=== PATIENT | female | born 1940 | race Caucasian/White ===

== ENCOUNTER → 2019-10-24 | Outpatient (CLI) | payer MEDICARE, OTHER ==
[~2019-10-24] MED LIST: ASPI81CH43 PO; BACITRACIN TOP OINT 1 UD PKG TOP ONE; CHOL1TAB22 PO; COEN100C30 PO; FURO1TAB31 PO; LEVO50TA7 PO; LISI10TA6 PO; ROSU10TA16 PO; UMEC1AER IN
[2019-10-24 10:45] VITALS: BP 166/76
[2019-10-24 11:05] VITALS: BP 165/69
--- NOTE | 2019-10-24 11:06 | NUR ---
Discharge Instructions See e-MAR for any mediations given with this visit. Patient education given on disease process. Patient verbalized understanding. Previous labs reviewed. Patient discharged in stable condition with after care instructions and follow up appointment. NOTE WOUND CARE DONE BY CHERYL SENIOR BACITRACIN OINTMENT 1 PACK
== END | disposition home or self-care (01) ==
LOC: CHF HDHVI 10:46
PROVIDERS: ATTEND Internal Medicine Cardiovascular Disease
DX: T14.8XXA Other injury of unspecified body region, initial encounter (principal); X58.XXXA Exposure to other specified factors, initial encounter; Y93.89 Activity, other specified; Y92.89 Other specified places as the place of occurrence of the external cause; Y99.8 Other external cause status
CPT/HCPCS: G0463

== ENCOUNTER 2019-11-30 12:27 | Inpatient (IN) | payer MEDICARE, OTHER ==
[~2019-11-30] VITALS: Ht 157.5 cm; Wt 61.3 kg
[2019-11-30] MEDS: POTASSIUM CHL 20MEQ/100ML 100 ML IV SCH ×6 (02:50→22:25)
[~2019-11-30 12:27] MED LIST changes: -BACITRACIN TOP OINT 1 UD PKG TOP ONE
[2019-11-30 13:33] LABS: Basophils # (auto) 0.1 10 ^3/uL (0-0.2); Basophils % (auto) 1.2 % (0.0-2.0); Eosinophils # (auto) 0.2 10 ^3/uL (0-0.8); Eosinophils % (auto) 2.8 % (0.0-7.0); Hematocrit 44.8 % (36.0-46.0); Lymphocytes # (auto) 1.6 10 ^3/uL (0.4-5.4); Lymphocytes % (auto) 27.2 % (10.0-50.0); Mean Corpuscular Hemoglobin 30.3 pg (28.0-32.0); Mean Corpuscular Hgb Conc. 33.5 g/dL (32.0-36.0); Mean Corpuscular Volume 90.4 fL (80.0-100.0); Monocytes # (auto) 0.4 10 ^3/uL (0-1.3); Monocytes % (auto) 6.5 % (0.0-12.0); Neutrophils # (auto) 3.6 10 ^3/uL (1.6-8.6); Neutrophils % (auto) 62.3 % (37.0-80.0); Nucleated Red Blood Cells % 0.1 %; Platelet Count (auto) 250 10^3/uL (140-450); Red Blood Cells 4.95 10^6/uL (4.0-5.20); Red Cell Distribution Width 14.3 % (11.8-14.3); White Blood Cell 5.9 10^3/uL (4.4-10.8)
[2019-11-30 13:45] LABS: Albumin 3.5 g/dL (3.4-5.0); Anion Gap 7 (5-15); Blood Urea Nitrogen 9 mg/dL (7-18); Calcium 9.4 mg/dL (8.5-10.1); Carbon Dioxide 34 mmol/L (21-32); Chloride 103 mmol/L (98-107); Glucose 99 mg/dL (74-106); Sodium 144 mmol/L (136-145)
[2019-11-30] MEDS ORDERED: PANTOPRAZOLE 40 MG TAB PO ONE (13:45)
[2019-11-30] MEDS ORDERED: ASPirin 81 mg TAB PO ONE (13:45)
[2019-11-30 13:51] LABS: Alanine Aminotransferase 20 U/L (13-56); Alkaline Phosphatase 134 U/L (45-117); Aspartate Aminotransferase 24 U/L (15-37); BUN/Creatinine Ratio 10.7; Bilirubin, Total 0.9 mg/dL (0.2-1.0); GFR African American 84 mL/min; GFR Non-African American 69 mL/min; Total Protein 7.4 g/dL (6.4-8.2)
[2019-11-30 13:57] LABS: Potassium 2.3 mmol/L (3.5-5.1)
[2019-11-30] MEDS ORDERED: POTASSIUM CHL 20 Meq TABLET PO ONE ×2 (17:15→19:30)
--- NOTE | 2019-11-30 19:30 | NUR ---
Admitted this 79 year old female client due to low K level = 2.3 today. Pt. arrived alert, awake, oriented x 4 with [place] (hard of hearing) from E.R. to Room # 221 A by soledad/savannah. Pt. diagnosis is Hypokalemia. Pt. placed to bed comfortably. Initial assessment done. Pt. on telemetry with Tele box # 27 Sinus Rhythm @ 70's @ the monitor. Pt. on 2L/NC continuous attached to the 02 cylinder. Pt. lungs sound diminished bilaterally. Breathing symmetrical with mild sob. Pt. on bedrest with BRP and minimal assist. Pt. provided orientation to the room, Central wing unit and hospital policies like "no smoking" in the room, v/s to be taken as routine, use of tele box and telemetry patches on her chest and pt. safety with call-light @ the bedside. Pt. given orientation also of the call-light, TV, bed controls, telephone and other safety precaution. Keep pt. safe and manager machine bed.
--- NOTE | 2019-11-30 20:00 | NUR ---
Complete assessment done @ the bedside. Gathered data from pt. with the help of the Resource PARRISH Francois. Pt. provided assistance with ADL's and needs. Keep pt. safe, warm and comfortable in bed. IV of Potassium Chloride 20 meq. Replacement set up by PARRISH Cohen with the IV Pump @ the bedside to run continuously till pt. will complete the four (4) bags tonight which started @ the ER. Pt. Potassium Chloride 20 meq. IV is attached to the RAC G # 22. Provide pt. psychological support and stayed with the pt. Given pt. explanation to the IV treatment given due to low K level today = 2.3 , see or refer to the lab. results today.
[2019-11-30] MEDS: CLOPIDOGREL BISULFATE 75 MG TAB PO SCH (21:19)
--- NOTE | 2019-11-30 21:19 | NUR ---
Due meds. given to the pt. with health teaching provided about its use and mechanism of action. Pt. verbalized understanding. Pt. has swallowing difficulty and crushed meds. and given with apple sauce and water slowly with HOB Up @ 85-90 degrees angle. Then pt. returned to sleep with the HOB @ 30 degrees angle. Covered pt. with blanket and kept pt. warm. Call-light within reach. Maintained a safe and quiet environment. Potassium Chloride IV rider running continuously. This is the seconds bag of the K Christopher 20 meq./100 ml. bag.
[2019-11-30] MEDS: LISINOPRIL 10 MG TAB PO SCH (21:20)
[2019-11-30 21:47] VITALS: BP 127/74
--- NOTE | 2019-11-30 22:25 | NUR ---
Third 3rd IV Potassium Chloride or IV K Christopher bag given @ this time. This # 3 bag of IV K Christopher running continuously till consumed or finished.
--- NOTE | 2019-12-01 00:10 | NUR ---
Pt. calm and sleeping. SR @ the 70 's @ the Tele monitor # 27. No s.s of facial grimacing. No s/s of anxiety or agitation. Pt. sleeping well.
[2019-12-01] MEDS: POTASSIUM CHL 20MEQ/100ML 100 ML IV SCH (02:50)
--- NOTE | 2019-12-01 02:50 | NUR ---
The fourth (4th) IV Potassium Chloride 20 meq. Christopher given and this is the complete and final dose. Pt. still sleeping well.
--- NOTE | 2019-12-01 04:00 | NUR ---
No s/s of acute change. Pt. sleeping well. No s/s of pain, anxiety or discomfort. SR @ the monitor. Keeping environment free of unnecessary noise. Call-light @ the bedside.
[2019-12-01 05:00] VITALS: BP 153/67
--- NOTE | 2019-12-01 06:30 | NUR ---
Pt. sleeping, easily arousable by name. SR @ the monitor @ Tele Box # 27. No verbalization of pain @ this time. Am care given.
[2019-12-01] MEDS: LEVOTHYROXINE SODIUM 50 MCG TAB PO SCH (06:36)
--- NOTE | 2019-12-01 06:36 | NUR ---
Due med. given Synthroid 50 mcg. given po. @ this time. Pt. made aware of the use/benefits of med. given. Pt. verbalized understanding. Pt. awaiting breakfast. SR @ the monitor.
--- NOTE | 2019-12-01 07:00 | NUR ---
Opening Shift Note Received report on the patient. Awake lying in bed. Discussed the plan of care with the patient. Patient shows no signs of distress at this time. Bed in lowest position, side rails up x2, and the call light is within reach. Will continue to monitor.
--- NOTE | 2019-12-01 07:15 | NUR ---
Gave report to the next Day Shift PARRISH Busby. Pt. in bed resting awaiting breakfast.
[2019-12-01 08:00] VITALS: BP 127/74
[2019-12-01 09:00] VITALS: BP 134/54
[2019-12-01 09:15] LABS: Basophils # (auto) 0.1 10 ^3/uL (0-0.2); Basophils % (auto) 1.1 % (0.0-2.0); Eosinophils # (auto) 0.1 10 ^3/uL (0-0.8); Eosinophils % (auto) 2.9 % (0.0-7.0); Hematocrit 36.9 % (36.0-46.0); Hemoglobin 12.4 g/dL (12.2-16.2); Lymphocytes # (auto) 1.7 10 ^3/uL (0.4-5.4); Lymphocytes % (auto) 35.8 % (10.0-50.0); Mean Corpuscular Hemoglobin 30.8 pg (28.0-32.0); Mean Corpuscular Hgb Conc. 33.7 g/dL (32.0-36.0); Mean Corpuscular Volume 91.4 fL (80.0-100.0); Monocytes # (auto) 0.4 10 ^3/uL (0-1.3); Monocytes % (auto) 7.7 % (0.0-12.0); Neutrophils # (auto) 2.6 10 ^3/uL (1.6-8.6); Neutrophils % (auto) 52.5 % (37.0-80.0); Nucleated Red Blood Cells % 0.1 %; Platelet Count (auto) 190 10^3/uL (140-450); Red Blood Cells 4.04 10^6/uL (4.0-5.20); Red Cell Distribution Width 14.2 % (11.8-14.3); White Blood Cell 4.9 10^3/uL (4.4-10.8)
[2019-12-01 09:32] LABS: Albumin 2.5 g/dL (3.4-5.0); Calcium 8.6 mg/dL (8.5-10.1); Potassium 3.6 mmol/L (3.5-5.1)
[2019-12-01 09:35] LABS: BUN/Creatinine Ratio 9.2; Bilirubin, Total 0.7 mg/dL (0.2-1.0); Total Protein 5.7 g/dL (6.4-8.2)
[2019-12-01] MEDS: CLOPIDOGREL BISULFATE 75 MG TAB PO SCH (10:38)
[2019-12-01] MEDS: LISINOPRIL 10 MG TAB PO SCH ×2 (10:39→21:34)
[2019-12-01 19:43] LABS: Urine Bacteria MOD /hpf (None Seen); Urine Blood Negative /uL (Negative); Urine Specific Gravity 1.009 (1.001-1.035); Urine WBC 4 /hpf (0 - 5)
--- NOTE | 2019-12-01 20:04 | NUR ---
Opening Shift Note Assumed care of patient, sleeping in bed at this time. No S/S of distress/SOB or pain. Instructed on POC and to call for assist PRN, will continue to monitor for changes Q1hr and PRN.
[2019-12-01 21:42] VITALS: BP 146/64
--- NOTE | 2019-12-01 23:22 | NUR ---
OLIVER Recieved Received report from PARRISH Samuel and assumed care of patient. Patient is currently sleeping, awakens to voice. No signs or symptoms of distress noted, patient currently denies pain. Explained plan of care to patient and to call for assistance as needed, patient verbalized understanding. Will continue to monitor.
[2019-12-02 04:48] VITALS: BP 140/68
[2019-12-02] MEDS: LEVOTHYROXINE SODIUM 50 MCG TAB PO SCH (06:41)
[2019-12-02 07:45] VITALS: BP 127/74
[2019-12-02 09:00] VITALS: BP 127/66
[2019-12-02 09:15] LABS: Basophils # (auto) 0.1 10 ^3/uL (0-0.2); Basophils % (auto) 0.8 % (0.0-2.0); Eosinophils # (auto) 0.2 10 ^3/uL (0-0.8); Eosinophils % (auto) 3.5 % (0.0-7.0); Hematocrit 40.4 % (36.0-46.0); Hemoglobin 13.1 g/dL (12.2-16.2); Lymphocytes # (auto) 2.1 10 ^3/uL (0.4-5.4); Lymphocytes % (auto) 34.3 % (10.0-50.0); Mean Corpuscular Hemoglobin 29.7 pg (28.0-32.0); Mean Corpuscular Hgb Conc. 32.5 g/dL (32.0-36.0); Mean Corpuscular Volume 91.4 fL (80.0-100.0); Monocytes # (auto) 0.4 10 ^3/uL (0-1.3); Monocytes % (auto) 6.2 % (0.0-12.0); Neutrophils # (auto) 3.4 10 ^3/uL (1.6-8.6); Neutrophils % (auto) 55.2 % (37.0-80.0); Nucleated Red Blood Cells % 0.2 %; Platelet Count (auto) 233 10^3/uL (140-450); Red Blood Cells 4.42 10^6/uL (4.0-5.20); Red Cell Distribution Width 14.4 % (11.8-14.3); White Blood Cell 6.1 10^3/uL (4.4-10.8)
[2019-12-02 09:35] LABS: Albumin 2.8 g/dL (3.4-5.0); BUN/Creatinine Ratio 11.7; Calcium 9.2 mg/dL (8.5-10.1); Potassium 3.3 mmol/L (3.5-5.1)
[2019-12-02 09:38] LABS: Bilirubin, Total 0.8 mg/dL (0.2-1.0); Total Protein 6.4 g/dL (6.4-8.2)
[2019-12-02] MEDS: CLOPIDOGREL BISULFATE 75 MG TAB PO SCH (10:26)
[2019-12-02] MEDS: LISINOPRIL 10 MG TAB PO SCH (10:27)
[2019-12-02 13:00] VITALS: BP 127/70
--- NOTE | 2019-12-02 15:13 | NUR ---
[facility] Faxed D/C summary, face sheet, H&P, and order to [facility]
[2019-12-02 15:15] VITALS: BP 127/70
--- NOTE | 2019-12-04 10:26 | NUR ---
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 health packet. Per Nadia they have accepted patient for service on today 12/04/2019. Addendum: 12/04/19 at 1029 by Freda Kong SS Amended: Links added.
== END 2019-12-02 16:36 | disposition home health service (06) | DRG 641 ==
LOC: EDBD 12:27 → ER 12:27 → TELE 12:28 → TELE-CENTR 19:14
PROVIDERS: ADMIT Internal Medicine Cardiovascular Disease; ATTEND Internal Medicine Cardiovascular Disease
DX: E87.6 Hypokalemia (principal); I47.1 Supraventricular tachycardia; C44.90 Unspecified malignant neoplasm of skin, unspecified; E03.9 Hypothyroidism, unspecified; E78.5 Hyperlipidemia, unspecified; E86.1 Hypovolemia; R07.89 Other chest pain; I25.10 Atherosclerotic heart disease of native coronary artery without angina pectoris; J44.9 Chronic obstructive pulmonary disease, unspecified; I10 Essential (primary) hypertension; Z79.82 Long term (current) use of aspirin; Z79.899 Other long term (current) drug therapy; Z80.1 Family history of malignant neoplasm of trachea, bronchus and lung; Z82.49 Family history of ischemic heart disease and other diseases of the circulatory system; I25.2 Old myocardial infarction; Z90.49 Acquired absence of other specified parts of digestive tract; Z85.828 Personal history of other malignant neoplasm of skin; Z90.710 Acquired absence of both cervix and uterus; Z98.61 Coronary angioplasty status; Z88.0 Allergy status to penicillin
CPT/HCPCS: 36415; 71046; 80053; 81001; 84484; 85025; 87081; 93005; 96365; 96366; G0378; J3480

== ENCOUNTER → 2020-01-01 | Outpatient (CLI) | payer MEDICARE, OTHER | END | disposition home or self-care (01) | LOC: Rad HDHVI 08:49 | PROVIDERS: ATTEND Internal Medicine Cardiovascular Disease | DX: I07.1 Rheumatic tricuspid insufficiency (principal); I21.4 Non-ST elevation (NSTEMI) myocardial infarction | CPT/HCPCS: 93306 ==

== ENCOUNTER → 2020-01-03 | Outpatient (CLI) | payer MEDICARE, OTHER | END | disposition home or self-care (01) | LOC: Rad HDHVI 11:06 | PROVIDERS: ATTEND Internal Medicine Cardiovascular Disease | DX: I21.4 Non-ST elevation (NSTEMI) myocardial infarction (principal); R42 Dizziness and giddiness | CPT/HCPCS: 93880 ==

== ENCOUNTER → 2020-01-26 | Outpatient (CLI) | payer MEDICARE, OTHER ==
[~2020-01-26] VITALS: Ht 157.5 cm; Wt 55.3 kg
[~2020-01-26] MED LIST changes: +ADENOSINE 46 MG in GIVE UN-DILUTED 0 ML IV ONE; +ADENOSINE 90 MG/30 ML INJ IV ONE
== END | disposition home or self-care (01) ==
LOC: Rad HDHVI 07:59
PROVIDERS: ATTEND Internal Medicine Cardiovascular Disease
DX: I25.10 Atherosclerotic heart disease of native coronary artery without angina pectoris (principal); I10 Essential (primary) hypertension; E78.00 Pure hypercholesterolemia, unspecified; F17.210 Nicotine dependence, cigarettes, uncomplicated; Z82.49 Family history of ischemic heart disease and other diseases of the circulatory system
CPT/HCPCS: 78452; 93005; 96374; 96375; A9500; J0153

== ENCOUNTER → 2020-03-21 | Outpatient (CLI) | payer MEDICARE, OTHER ==
[~2020-03-21] MED LIST changes: -ADENOSINE 46 MG in GIVE UN-DILUTED 0 ML IV ONE; -ADENOSINE 90 MG/30 ML INJ IV ONE
[2020-03-21 13:05] VITALS: BP 130/69
--- NOTE | 2020-03-21 13:05 | NUR ---
PT. BROUGHT TO CHF CLINIC FROM WAITING ROOM WITH CAREGIVER WITH C/O CHEST PAIN THIS MORNING AND "FAST HEARTBEAT". PT. WITH NO C.P. AT THIS TIME BUT APPEARS VERY ANXIOUS AND NERVOUS. AOX4, PWD. ORDERS RECEIVED AND CARRIED OUT.
--- NOTE | 2020-03-21 13:20 | NUR ---
EKG DONE SHOWING RSR WITH NO ECTOPY AT [address] ELEVATION. OLD ANTEROSEPTAL INFARCT NOTED. PT. APPEARS LESS ANXIOUS WITH REASURRANCE OF EKG RESULTS. PT. HAS 2 DEATHS IN THE FAMILY RECENTLY AND STATES SHE IS FEELING UNDER A GREAT DEAL OF STRESS. NO FURTHER ORDERS RECEIVED. B/P STABLE AT 117/60, 74, 16, RA SATS 97%, PT. IS MUCH MORE CALM AT THIS TIME.
[2020-03-21 13:45] VITALS: BP 118/72
--- NOTE | 2020-03-21 13:45 | NUR ---
Discharge Instructions See e-MAR for any mediations given with this visit. Patient education given on disease process. Patient verbalized understanding. Previous labs reviewed. Patient discharged in stable condition with after care instructions and follow up appointment. PT. INSTRUCTED TO USE ONE HALF TAB OF HER ATIVAN THAT SHE WAS PRESCRIBED WHEN SHE LOST HER SISTER RECENTLY, WITH CAREGIVER AKNOWLEDGING DIRECTIONS. PT. TO RTC PRN AND FOLLOW UP WITH HER NEXT APPT. DC'D IN NO DISTRESS TO POV.
== END | disposition home or self-care (01) ==
LOC: CHF HDHVI 13:07
PROVIDERS: ATTEND Internal Medicine Cardiovascular Disease
DX: I25.10 Atherosclerotic heart disease of native coronary artery without angina pectoris (principal); R07.9 Chest pain, unspecified; F41.9 Anxiety disorder, unspecified; I73.9 Peripheral vascular disease, unspecified
CPT/HCPCS: 93005; G0463

== ENCOUNTER → 2020-10-09 | Outpatient (CLI) | payer MEDICARE, OTHER ==
[~2020-10-09] MED LIST changes: +LISI-648 PO; -LISI10TA6 PO
[2020-10-09 15:37] LABS: Basophils # (auto) 0.1 10 ^3/uL (0-0.2); Basophils % (auto) 0.9 % (0.0-2.0); Eosinophils # (auto) 0.1 10 ^3/uL (0-0.8); Eosinophils % (auto) 2.3 % (0.0-7.0); Hematocrit 38.9 % (36.0-46.0); Hemoglobin 13.5 g/dL (12.2-16.2); Lymphocytes # (auto) 2.4 10 ^3/uL (0.4-5.4); Lymphocytes % (auto) 37.9 % (10.0-50.0); Mean Corpuscular Hemoglobin 31.9 pg (28.0-32.0); Mean Corpuscular Hgb Conc. 34.7 g/dL (32.0-36.0); Mean Corpuscular Volume 91.8 fL (80.0-100.0); Monocytes # (auto) 0.4 10 ^3/uL (0-1.3); Monocytes % (auto) 5.9 % (0.0-12.0); Neutrophils # (auto) 3.4 10 ^3/uL (1.6-8.6); Nucleated Red Blood Cells % 0.1 %; Platelet Count (auto) 289 10^3/uL (140-450); Red Blood Cells 4.24 10^6/uL (4.0-5.20); Red Cell Distribution Width 14.3 % (11.8-14.3); White Blood Cell 6.4 10^3/uL (4.4-10.8)
[2020-10-09 15:39] LABS: Urine Blood Negative /uL (Negative); Urine Specific Gravity 1.007 (1.001-1.035)
[2020-10-09 15:55] LABS: Free T4 (Free Thyroxine) 0.94 ng/dL (0.89-1.76)
[2020-10-09 15:56] LABS: Albumin 3.6 g/dL (3.4-5.0); Calcium 9.4 mg/dL (8.5-10.1)
[2020-10-09 16:00] LABS: BUN/Creatinine Ratio 8.9; Bilirubin, Direct 0.3 mg/dL (0-0.2); Bilirubin, Total 1.2 mg/dL (0.2-1.0); Total Protein 7.4 g/dL (6.4-8.2)
[2020-10-09 16:34] LABS: Potassium 2.6 mmol/L (3.5-5.1)
== END | disposition home or self-care (01) ==
LOC: LAB 13:14
PROVIDERS: ATTEND Internal Medicine Cardiovascular Disease
DX: D51.3 Other dietary vitamin B12 deficiency anemia (principal); I10 Essential (primary) hypertension; E11.9 Type 2 diabetes mellitus without complications; E55.9 Vitamin D deficiency, unspecified; D64.9 Anemia, unspecified; R00.2 Palpitations; R53.1 Weakness; R30.0 Dysuria
CPT/HCPCS: 36415; 80048; 80061; 80076; 81003; 82306; 82607; 83036; 84439; 84443; 85025

== ENCOUNTER → 2020-10-16 | Outpatient (CLI) | payer MEDICARE, OTHER ==
[2020-10-16 14:02] VITALS: BP 136/59
[2020-10-16] MEDS: CYANOCOBALAMIN (B-12) 1000 MCG/1 ML VIAL IM ONE (14:14)
[2020-10-16 14:22] VITALS: BP 132/58
[2020-10-16] MEDS: CYANOCOBALAMIN (B-12) 1000 MCG/1 ML VIAL ONE (14:38)
[2020-10-16 15:57] LABS: Magnesium 2.3 mg/dL (1.6-2.6)
[2020-10-16 16:02] LABS: Potassium 2.7 mmol/L (3.5-5.1)
== END | disposition home or self-care (01) ==
LOC: CHF HDHVI 14:23
PROVIDERS: ATTEND Internal Medicine Cardiovascular Disease
DX: D51.9 Vitamin B12 deficiency anemia, unspecified (principal); E87.6 Hypokalemia; R53.83 Other fatigue; I11.0 Hypertensive heart disease with heart failure; I50.33 Acute on chronic diastolic (congestive) heart failure; R06.02 Shortness of breath; E11.9 Type 2 diabetes mellitus without complications
CPT/HCPCS: 36415; 83735; 84132; 93306; 96372; G0463; J3420

== ENCOUNTER → 2020-10-28 | Outpatient (CLI) | payer MEDICARE, OTHER ==
[2020-10-28 11:56] LABS: Potassium 3.5 mmol/L (3.5-5.1)
[2020-10-28 12:10] LABS: BUN/Creatinine Ratio 15.2; Calcium 9.7 mg/dL (8.5-10.1); Magnesium 2.4 mg/dL (1.6-2.6)
== END | disposition home or self-care (01) ==
LOC: LAB 09:40
PROVIDERS: ATTEND Internal Medicine Cardiovascular Disease
DX: I49.9 Cardiac arrhythmia, unspecified (principal); I10 Essential (primary) hypertension
CPT/HCPCS: 36415; 80048; 83735

== ENCOUNTER 2021-06-10 09:31 | Emergency (ER) | payer MEDICARE, OTHER ==
[~2021-06-10] VITALS: Ht 154.9 cm; Wt 54.4 kg
[~2021-06-10 09:31] MED LIST changes: -LISI-648 PO; +LISI-716 PO
[2021-06-10] MEDS ORDERED: ONDANSETRON HCL 4 MG/2 ML VIAL IV ONE (11:30)
[2021-06-10] MEDS ORDERED: MORPHINE SULFATE INJECTION 2 MG/ML SYRG IV ONE (11:30)
[2021-06-10 12:04] LABS: Basophils # (auto) 0.1 10 ^3/uL (0-0.2); Basophils % (auto) 0.6 % (0.0-2.0); Eosinophils # (auto) 0.2 10 ^3/uL (0-0.8); Eosinophils % (auto) 1.9 % (0.0-7.0); Hematocrit 39.5 % (36.0-46.0); Hemoglobin 13.3 g/dL (12.2-16.2); Lymphocytes # (auto) 1.5 10 ^3/uL (0.4-5.4); Lymphocytes % (auto) 15.6 % (10.0-50.0); Mean Corpuscular Hemoglobin 29.9 pg (28.0-32.0); Mean Corpuscular Hgb Conc. 33.7 g/dL (32.0-36.0); Mean Corpuscular Volume 88.9 fL (80.0-100.0); Monocytes # (auto) 0.5 10 ^3/uL (0-1.3); Monocytes % (auto) 5.4 % (0.0-12.0); Neutrophils # (auto) 7.6 10 ^3/uL (1.6-8.6); Neutrophils % (auto) 76.5 % (37.0-80.0); Red Blood Cells 4.45 10^6/uL (4.0-5.20); White Blood Cell 9.9 10^3/uL (4.4-10.8)
[2021-06-10 12:09] LABS: Albumin 3.6 g/dL (3.4-5.0); Anion Gap 6 (5-15); Blood Urea Nitrogen 8 mg/dL (7-18); Calcium 9.5 mg/dL (8.5-10.1); Carbon Dioxide 30 mmol/L (21-32); Chloride 110 mmol/L (98-107); Glucose 96 mg/dL (74-106); Sodium 146 mmol/L (136-145)
[2021-06-10 12:15] LABS: Alanine Aminotransferase 20 U/L (13-56); Alkaline Phosphatase 95 U/L (45-117); Aspartate Aminotransferase 23 U/L (15-37); BUN/Creatinine Ratio 9.9; GFR African American 87 mL/min; GFR Non-African American 72 mL/min; Total Protein 7.4 g/dL (6.4-8.2)
[2021-06-10 12:25] LABS: Potassium 2.7 mmol/L (3.5-5.1)
[2021-06-10] MEDS ORDERED: ALUM & MAG HYDROX-SIMETH LIQ(MAALOX) 30 ML PO ONE (12:30)
[2021-06-10] MEDS ORDERED: POTASSIUM EFFERVESENT TAB 25 MEQ PO ONE (12:30)
[2021-06-10] MEDS ORDERED: POTASSIUM CHL 20MEQ/100ML 100 ML IV ONE (12:30)
[2021-06-10 15:11] VITALS: BP 124/68
== END 2021-06-10 15:21 | disposition home or self-care (01) ==
LOC: ER 09:31
DX: M48.02 Spinal stenosis, cervical region (principal); E87.6 Hypokalemia; J44.9 Chronic obstructive pulmonary disease, unspecified; E78.5 Hyperlipidemia, unspecified; Z90.49 Acquired absence of other specified parts of digestive tract; Z90.89 Acquired absence of other organs; Z90.710 Acquired absence of both cervix and uterus; Z88.0 Allergy status to penicillin; Z88.8 Allergy status to other drugs, medicaments and biological substances; Z79.899 Other long term (current) drug therapy
CPT/HCPCS: 36415; 72125; 80053; 83880; 84484; 85025; 93005; 96365; 96366; 96375; 99285; J2270; J2405; J3480

== ENCOUNTER 2022-01-25 07:21 | Emergency (ER) | payer MEDICARE, OTHER ==
[~2022-01-25] VITALS: Ht 160 cm; Wt 54.4 kg
[2022-01-25] MEDS ORDERED: ACETAMINOPHEN 325 MG TAB PO ONE (08:00)
[2022-01-25 08:10] VITALS: BP 148/52
== END 2022-01-25 09:11 | disposition home or self-care (01) ==
LOC: ER 07:21
DX: S00.03XA Contusion of scalp, initial encounter (principal); J44.9 Chronic obstructive pulmonary disease, unspecified; E78.5 Hyperlipidemia, unspecified; Z90.49 Acquired absence of other specified parts of digestive tract; Z90.710 Acquired absence of both cervix and uterus; W19.XXXA Unspecified fall, initial encounter; Y93.89 Activity, other specified; Y92.9 Unspecified place or not applicable; Y99.8 Other external cause status
CPT/HCPCS: 70450

== ENCOUNTER → 2022-03-04 | Outpatient (CLI) | payer MEDICARE, OTHER ==
[2022-03-04 15:56] LABS: Basophils # (auto) 0 10 ^3/uL (0-0.2); Basophils % (auto) 0.7 % (0.0-2.0); Eosinophils # (auto) 0.2 10 ^3/uL (0-0.8); Eosinophils % (auto) 3.1 % (0.0-7.0); Hematocrit 43.5 % (36.0-46.0); Hemoglobin 14.5 g/dL (12.2-16.2); Lymphocytes # (auto) 2.7 10 ^3/uL (0.4-5.4); Lymphocytes % (auto) 38.9 % (10.0-50.0); Mean Corpuscular Hemoglobin 29.7 pg (28.0-32.0); Mean Corpuscular Hgb Conc. 33.2 g/dL (32.0-36.0); Mean Corpuscular Volume 89.2 fL (80.0-100.0); Monocytes # (auto) 0.4 10 ^3/uL (0-1.3); Monocytes % (auto) 6.1 % (0.0-12.0); Neutrophils # (auto) 3.5 10 ^3/uL (1.6-8.6); Neutrophils % (auto) 51.2 % (37.0-80.0); Nucleated Red Blood Cells % 0.1 %; Red Blood Cells 4.88 10^6/uL (4.0-5.20); Red Cell Distribution Width 13.9 % (11.8-14.3); White Blood Cell 6.9 10^3/uL (4.4-10.8)
[2022-03-04 15:57] LABS: Urine Blood 1+ /uL (Negative); Urine Specific Gravity 1.011 (1.001-1.035)
[2022-03-04 16:12] LABS: Albumin 3.9 g/dL (3.4-5.0); Calcium 9.5 mg/dL (8.5-10.1)
[2022-03-04 16:17] LABS: BUN/Creatinine Ratio 17.1; Bilirubin, Direct 0.2 mg/dL (0-0.2)
[2022-03-04 16:28] LABS: Potassium 2.6 mmol/L (3.5-5.1)
== END | disposition home or self-care (01) ==
LOC: LAB 14:13
PROVIDERS: ATTEND Internal Medicine Cardiovascular Disease
DX: D51.3 Other dietary vitamin B12 deficiency anemia (principal); D64.9 Anemia, unspecified; E11.9 Type 2 diabetes mellitus without complications; E55.9 Vitamin D deficiency, unspecified; I10 Essential (primary) hypertension; R00.2 Palpitations; R53.1 Weakness; R30.0 Dysuria
CPT/HCPCS: 36415; 80048; 80061; 80076; 81003; 82306; 83036; 84443; 85025

== ENCOUNTER → 2022-09-01 | Outpatient (CLI) | payer MEDICARE, OTHER | END | disposition home or self-care (01) | LOC: Rad HDHVI 13:48 | PROVIDERS: ATTEND Internal Medicine Cardiovascular Disease | DX: R00.2 Palpitations (principal); R07.89 Other chest pain | CPT/HCPCS: 93306 ==

== ENCOUNTER → 2022-10-06 | Outpatient (CLI) | payer MEDICARE, OTHER ==
[2022-10-06 13:28] LABS: Basophils # (auto) 0.1 10 ^3/uL (0-0.2); Basophils % (auto) 1.3 % (0.0-2.0); Eosinophils # (auto) 0.4 10 ^3/uL (0-0.8); Eosinophils % (auto) 4.5 % (0.0-7.0); Hematocrit 41.4 % (36.0-46.0); Hemoglobin 13.7 g/dL (12.2-16.2); Lymphocytes # (auto) 2.5 10 ^3/uL (0.4-5.4); Lymphocytes % (auto) 30.6 % (10.0-50.0); Mean Corpuscular Hemoglobin 30.6 pg (28.0-32.0); Mean Corpuscular Hgb Conc. 33.1 g/dL (32.0-36.0); Mean Corpuscular Volume 92.5 fL (80.0-100.0); Monocytes # (auto) 0.5 10 ^3/uL (0-1.3); Neutrophils # (auto) 4.8 10 ^3/uL (1.6-8.6); Neutrophils % (auto) 57.6 % (37.0-80.0); Nucleated Red Blood Cells % 0.1 %; Red Blood Cells 4.48 10^6/uL (4.0-5.20); Red Cell Distribution Width 14.3 % (11.8-14.3); White Blood Cell 8.3 10^3/uL (4.4-10.8)
[2022-10-06 13:36] LABS: Potassium 3.2 mmol/L (3.5-5.1)
[2022-10-06 13:39] LABS: Urine Blood Negative /uL (Negative); Urine Specific Gravity 1.011 (1.001-1.035)
[2022-10-06 13:44] LABS: Albumin 4.1 g/dL (3.4-5.0); BUN/Creatinine Ratio 13.2; Bilirubin, Total 0.8 mg/dL (0.2-1.0); Calcium 10.2 mg/dL (8.5-10.1); Total Protein 7.5 g/dL (6.4-8.2)
[2022-10-06 13:50] LABS: Free T4 (Free Thyroxine) 1.19 ng/dL (0.89-1.76)
== END | disposition home or self-care (01) ==
LOC: LAB 09:04
PROVIDERS: ATTEND Internal Medicine Cardiovascular Disease
DX: I10 Essential (primary) hypertension (principal); E55.9 Vitamin D deficiency, unspecified; N39.0 Urinary tract infection, site not specified
CPT/HCPCS: 36415; 80053; 80061; 81003; 82306; 82607; 83036; 84439; 84443; 85025; 87086

== ENCOUNTER 2023-03-16 09:49 | Inpatient (IN) | payer MEDICARE, OTHER ==
[~2023-03-16] VITALS: Ht 157.5 cm; Wt 70.0 kg
[~2023-03-16 09:49] MED LIST changes: -COEN100C30 PO; -LISI-716 PO; +LISI10TA34 PO
[2023-03-16 10:08] LABS: Basophils # (auto) 0.1 10 ^3/uL (0-0.2); Basophils % (auto) 1.2 % (0.0-2.0); Eosinophils # (auto) 0.2 10 ^3/uL (0-0.8); Eosinophils % (auto) 3.2 % (0.0-7.0); Hematocrit 42.6 % (36.0-46.0); Hemoglobin 14.3 g/dL (12.2-16.2); Lymphocytes # (auto) 2.2 10 ^3/uL (0.4-5.4); Lymphocytes % (auto) 30.4 % (10.0-50.0); Mean Corpuscular Hemoglobin 30.5 pg (28.0-32.0); Mean Corpuscular Hgb Conc. 33.6 g/dL (32.0-36.0); Mean Corpuscular Volume 90.7 fL (80.0-100.0); Monocytes # (auto) 0.5 10 ^3/uL (0-1.3); Monocytes % (auto) 6.4 % (0.0-12.0); Neutrophils # (auto) 4.3 10 ^3/uL (1.6-8.6); Neutrophils % (auto) 58.8 % (37.0-80.0); Nucleated Red Blood Cells % 0.1 %; Red Cell Distribution Width 13.8 % (11.8-14.3); White Blood Cell 7.2 10^3/uL (4.4-10.8)
[2023-03-16 10:16] LABS: Urine Bacteria NONE SEEN /hpf (None Seen); Urine Blood Negative /uL (Negative); Urine Specific Gravity 1.003 (1.001-1.035); Urine WBC <1 /hpf (0 - 5)
[2023-03-16 10:46] LABS: Calcium 10.6 mg/dL (8.5-10.1); Potassium 4.1 mmol/L (3.5-5.1)
[2023-03-16 10:50] LABS: Albumin 4.1 g/dL (3.4-5.0); BUN/Creatinine Ratio 16.5 (10.0-20.0)
[2023-03-16 10:59] LABS: Bilirubin, Total 0.7 mg/dL (0.2-1.0); Total Protein 7.8 g/dL (6.4-8.2)
[2023-03-16 12:09] VITALS: BP 134/64; TEMP 98
[2023-03-16 12:11] VITALS: PULSE 87; RESP 18; O2SAT 94
[2023-03-16] MEDS ORDERED: ONDANSETRON HCL 4 MG/2 ML VIAL IV PRN (16:30)
[2023-03-16] MEDS ORDERED: NITROGLYCERIN 0.4 MG SL TAB SL PRN (16:30)
[2023-03-16] MEDS ORDERED: HYDROcodone-ACET 5/325MG TAB PO PRN (16:30)
[2023-03-16] MEDS ORDERED: DOCUSATE SOD 100 MG CAP PO PRN (16:30)
[2023-03-16] MEDS ORDERED: MORPHINE SULFATE INJ 2 MG/ml SYRG IV PRN (16:30)
[2023-03-16] MEDS ORDERED: ACETAMINOPHEN 325 MG TAB PO PRN (16:30)
[2023-03-16] MEDS ORDERED: FUROSEMIDE 40 MG TAB PO SCH (16:30)
[2023-03-16] MEDS ORDERED: LACTATED RINGER'S 500 ML IV ONE (16:45)
[2023-03-16] MEDS ORDERED: SODIUM CHLOR 0.9% PF (SALINE LOCK) 10ML VIAL/SYR IV SCH (22:00)
[2023-03-16] MEDS ORDERED: LISINOPRIL 10 MG TAB PO SCH (22:00)
[2023-03-17] MEDS ORDERED: LEVOTHYROXINE SODIUM 50 MCG TAB PO SCH (07:00)
[2023-03-17] MEDS ORDERED: ASPirin 81 mg TAB PO SCH (10:00)
[2023-03-17] MEDS ORDERED: ATORVASTATIN 20 MG TAB PO SCH (10:00)
[2023-03-17] MEDS ORDERED: ENOXAPARIN SOD 40 MG/0.4 ML SYRINGE SC SCH (10:00)
[2023-03-17] MEDS ORDERED: CHOLECALCIFEROL (VITD3) 1,000UNIT=25mCg TAB PO SCH (10:00)
== END 2023-03-16 18:12 | disposition left against medical advice (07) | DRG 311 ==
LOC: ER 09:49 → TELE 16:32
PROVIDERS: ADMIT Internal Medicine; ATTEND Internal Medicine
DX: I24.9 Acute ischemic heart disease, unspecified (principal); I10 Essential (primary) hypertension; E78.5 Hyperlipidemia, unspecified; J44.9 Chronic obstructive pulmonary disease, unspecified; Z53.29 Procedure and treatment not carried out because of patient's decision for other reasons; Z88.0 Allergy status to penicillin; Z90.710 Acquired absence of both cervix and uterus; Z90.49 Acquired absence of other specified parts of digestive tract; Z82.49 Family history of ischemic heart disease and other diseases of the circulatory system; Z80.1 Family history of malignant neoplasm of trachea, bronchus and lung
CPT/HCPCS: 36415; 71045; 80053; 81001; 83880; 84484; 85025; 93005; G0378

== ENCOUNTER → 2023-04-08 | Outpatient (CLI) | payer MEDICARE, OTHER | END | disposition home or self-care (01) | LOC: Rad HDHVI 13:49 | PROVIDERS: ATTEND Internal Medicine Cardiovascular Disease | DX: I08.3 Combined rheumatic disorders of mitral, aortic and tricuspid valves (principal); R07.9 Chest pain, unspecified; R06.02 Shortness of breath | CPT/HCPCS: 93306 ==

== ENCOUNTER → 2023-04-14 | Outpatient (CLI) | payer MEDICARE, OTHER ==
[~2023-04-14] VITALS: Ht 157.5 cm; Wt 58.1 kg
[~2023-04-14] MED LIST changes: +ADENOSINE 49 MG in GIVE UN-DILUTED 0 ML IV ONE; +ADENOSINE 90 MG/30 ML INJ IV ONE
== END | disposition home or self-care (01) ==
LOC: Rad HDHVI 13:56
PROVIDERS: ATTEND Internal Medicine Cardiovascular Disease
DX: I25.118 Atherosclerotic heart disease of native coronary artery with other forms of angina pectoris (principal); I10 Essential (primary) hypertension; E78.5 Hyperlipidemia, unspecified; R07.89 Other chest pain; R06.02 Shortness of breath; F17.210 Nicotine dependence, cigarettes, uncomplicated; Z82.49 Family history of ischemic heart disease and other diseases of the circulatory system
CPT/HCPCS: 78452; 93005; 96374; 96375; A9500; J0153

== ENCOUNTER 2023-10-14 14:51 | Emergency (ER) | payer MEDICARE, OTHER ==
[~2023-10-14] VITALS: Ht 160 cm; Wt 63.6 kg
[~2023-10-14 14:51] MED LIST changes: -ADENOSINE 49 MG in GIVE UN-DILUTED 0 ML IV ONE; -ADENOSINE 90 MG/30 ML INJ IV ONE
[2023-10-14] MEDS: ALBUTEROL SULF 2.5 MG/0.5ML(0.5%) NEB SOLN NEB ONE (15:15)
[2023-10-14] MEDS: IPRATROPIUM BROM 0.5 MG/2.5ML INH SOL NEB ONE (15:15)
[2023-10-14 15:36] VITALS: BP 159/73; PULSE 80; RESP 18; O2SAT 100
[2023-10-14 15:42] LABS: Hematocrit 41.1 % (36.0-46.0); Hemoglobin 13.1 g/dL (12.2-16.2); Mean Corpuscular Hemoglobin 29.3 pg (28.0-32.0); Mean Corpuscular Volume 91.7 fL (80.0-100.0); Red Blood Cells 4.47 10^6/uL (4.0-5.20); Red Cell Distribution Width 15.3 % (11.8-14.3); White Blood Cell 7.4 10^3/uL (4.4-10.8)
[2023-10-14 15:46] LABS: Band Neutrophils % (manual) 0; Basophils % (manual) 0 (0.0-2.0); Blast Cells 0; Metamyelocytes % 0; Myelocytes % 0; Promyelocytes % 0; Reactive Lymphocytes 0
[2023-10-14 15:57] LABS: Base Excess -0.4 mmol/L (-2.0-2.0)
[2023-10-14 16:01] LABS: Alanine Aminotransferase 18 U/L (7-40); Albumin 4.2 g/dL (3.2-4.8); Alkaline Phosphatase 94 U/L (46-116); Anion Gap 5 (5-15); Aspartate Aminotransferase 32 U/L (13-40); BUN/Creatinine Ratio 16.5 (10.0-20.0); Blood Urea Nitrogen 15 mg/dL (9-23); Calcium 9.6 mg/dL (8.5-10.1); Carbon Dioxide 29 mmol/L (20-30); Chloride 110 mmol/L (98-107); Glucose 97 mg/dL (74-106); Potassium 4.1 mmol/L (3.5-5.1); Sodium 144 mmol/L (136-145)
[2023-10-14 16:02] LABS: Bilirubin, Total 0.9 mg/dL (0.2-1.0); Total Protein 6.7 g/dL (5.7-8.2)
[2023-10-14] MEDS: methylPREDNISolone SOD SUCC 125 MG/2 ML VL IV ONE (16:14)
[2023-10-14 16:59] LABS: Eosinophils % (manual) 6 (0-7); Lymphocytes % (manual) 19 (10.0-50.0); Monocytes % (manual) 21 (0-12); Platelet Estimate Adequate
== END 2023-10-14 17:00 | disposition home or self-care (01) ==
LOC: EDBD 14:51 → ER 14:51 → EDUNIT# 14:51 → ER 17:00
DX: J44.1 Chronic obstructive pulmonary disease with (acute) exacerbation (principal); I10 Essential (primary) hypertension; E03.9 Hypothyroidism, unspecified; E78.5 Hyperlipidemia, unspecified; J44.9 Chronic obstructive pulmonary disease, unspecified; Z90.49 Acquired absence of other specified parts of digestive tract; Z90.710 Acquired absence of both cervix and uterus
CPT/HCPCS: 36415; 36600; 71045; 80053; 82805; 83880; 84484; 85007; 85027; 93005; 94640; 99291; J7644

== ENCOUNTER 2023-10-30 08:27 | Emergency (ER) | payer MEDICARE, OTHER ==
[~2023-10-30] VITALS: Ht 157.5 cm; Wt 58.6 kg
[2023-10-30 08:34] VITALS: BP 148/57; PULSE 94; RESP 18; O2SAT 96
[2023-10-30] MEDS ORDERED: PRED20TA2 PO (09:20)
[2023-10-30] MEDS ORDERED: CEPH500C PO (09:20)
== END 2023-10-30 09:36 | disposition home or self-care (01) ==
LOC: ER 08:27
DX: S00.86XA Insect bite (nonvenomous) of other part of head, initial encounter (principal); L03.211 Cellulitis of face; J44.9 Chronic obstructive pulmonary disease, unspecified; I10 Essential (primary) hypertension; E78.5 Hyperlipidemia, unspecified; E03.9 Hypothyroidism, unspecified; Z90.49 Acquired absence of other specified parts of digestive tract; Z90.710 Acquired absence of both cervix and uterus; Z79.82 Long term (current) use of aspirin; Z79.899 Other long term (current) drug therapy; Z88.0 Allergy status to penicillin; Z88.8 Allergy status to other drugs, medicaments and biological substances; W57.XXXA Bitten or stung by nonvenomous insect and other nonvenomous arthropods, initial encounter; Y93.89 Activity, other specified; Y92.89 Other specified places as the place of occurrence of the external cause; Y99.8 Other external cause status

== ENCOUNTER → 2024-02-23 | Outpatient (CLI) | payer MEDICARE, OTHER ==
[~2024-02-23] MED LIST changes: +CEPH500C PO; +PRED20TA2 PO
== END | disposition home or self-care (01) ==
LOC: Rad HDHVI 08:56
PROVIDERS: ATTEND Internal Medicine Cardiovascular Disease
DX: I70.203 Unspecified atherosclerosis of native arteries of extremities, bilateral legs (principal); R60.9 Edema, unspecified; E78.5 Hyperlipidemia, unspecified; I10 Essential (primary) hypertension
CPT/HCPCS: 93925

== ENCOUNTER 2024-07-06 19:32 | Emergency (ER) | payer MEDICARE, OTHER ==
[~2024-07-06] VITALS: Ht 157.5 cm; Wt 60.9 kg
[2024-07-06 19:48] VITALS: BP 133/59; PULSE 74
[2024-07-06] MEDS: ALBUTEROL SULF 2.5 MG/0.5ML(0.5%) NEB SOLN NEB ONE (20:21)
[2024-07-06] MEDS: IPRATROPIUM BROM 0.5 MG/2.5ML INH SOL NEB ONE (20:21)
[2024-07-06 20:22] VITALS: RESP 18; O2SAT 93
[2024-07-06 20:26] LABS: Basophils # (auto) 0.1 10 ^3/uL (0-0.2); Basophils % (auto) 1.2 % (0.0-2.0); Eosinophils # (auto) 0.4 10 ^3/uL (0-0.8); Eosinophils % (auto) 4.6 % (0.0-7.0); Hematocrit 43.1 % (36.0-46.0); Hemoglobin 14.4 g/dL (12.2-16.2); Lymphocytes # (auto) 3.3 10 ^3/uL (0.4-5.4); Lymphocytes % (auto) 34.3 % (10.0-50.0); Mean Corpuscular Hemoglobin 31.8 pg (28.0-32.0); Mean Corpuscular Hgb Conc. 33.3 g/dL (32.0-36.0); Mean Corpuscular Volume 95.6 fL (80.0-100.0); Monocytes # (auto) 0.6 10 ^3/uL (0-1.3); Neutrophils # (auto) 5.2 10 ^3/uL (1.6-8.6); Neutrophils % (auto) 53.9 % (37.0-80.0); Nucleated Red Blood Cells % 0.1 %; Platelet Count (auto) 272 10^3/uL (140-450); Red Blood Cells 4.51 10^6/uL (4.0-5.20); Red Cell Distribution Width 13.8 % (11.8-14.3); White Blood Cell 9.7 10^3/uL (4.4-10.8)
[2024-07-06] MEDS ORDERED: FUROSEMIDE 40 MG/4 ML VIAL IV ONE (20:30)
[2024-07-06 20:37] LABS: Potassium 4.3 mmol/L (3.5-5.1); Sodium 148 mmol/L (136-145)
[2024-07-06 20:38] LABS: Carbon Dioxide 27 mmol/L (20-31)
[2024-07-06 20:39] LABS: Calcium 10.6 mg/dL (8.7-10.4)
[2024-07-06 20:44] LABS: BUN/Creatinine Ratio 12.6 (10.0-20.0); Blood Urea Nitrogen 15 mg/dL (9-23); Glucose 102 mg/dL (74-106)
[2024-07-06 21:04] LABS: Anion Gap 8 (5-15); Chloride 113 mmol/L (98-107)
== END 2024-07-06 21:55 | disposition left against medical advice (07) ==
LOC: ER 19:32
DX: I50.9 Heart failure, unspecified (principal); I11.0 Hypertensive heart disease with heart failure; J44.1 Chronic obstructive pulmonary disease with (acute) exacerbation; J96.01 Acute respiratory failure with hypoxia; J98.8 Other specified respiratory disorders; E78.5 Hyperlipidemia, unspecified; E03.9 Hypothyroidism, unspecified; F17.210 Nicotine dependence, cigarettes, uncomplicated; Z85.9 Personal history of malignant neoplasm, unspecified; Z90.49 Acquired absence of other specified parts of digestive tract; Z90.710 Acquired absence of both cervix and uterus
CPT/HCPCS: 36415; 80048; 83880; 85025; 94640

== ENCOUNTER → 2024-07-14 | Outpatient (CLI) | payer MEDICARE, OTHER ==
--- NOTE | 2024-07-14 12:53 | DVH ---
XY CHEST TWO VIEWS ROUTINE CLINICAL HISTORY: SOB COMPARISON: XY CHEST TWO VIEWS ROUTINE on DOS: 11/25/22 TECHNIQUE: Frontal and lateral view of the chest was obtained FINDINGS: Lines and Tubes: None Lungs: No focal consolidation. Pleura: No effusion. No pneumothorax. Cardiomediastinal contours: Unremarkable Bones: No acute osseous abnormality. IMPRESSION: No acute cardiopulmonary disease.
== END | disposition home or self-care (01) ==
LOC: Rad HDHVI 11:19
PROVIDERS: ATTEND Internal Medicine Cardiovascular Disease
DX: R06.02 Shortness of breath (principal); R05.9 Cough, unspecified
CPT/HCPCS: 71046

== ENCOUNTER → 2024-08-02 | Outpatient (CLI) | payer MEDICARE, OTHER ==
[~2024-08-02] VITALS: Ht 157.5 cm; Wt 72.6 kg
[~2024-08-02] MED LIST changes: +SODIUM CHLORIDE 0.9% 500 ML IV ONE
[2024-08-02 12:27] VITALS: BP 153/78; PULSE 77; RESP 18; O2SAT 98
[2024-08-02 13:32] VITALS: BP 143/73; PULSE 72; RESP 18; O2SAT 98
== END | disposition home or self-care (01) ==
LOC: CHF HDHVI 12:25
PROVIDERS: ATTEND Internal Medicine Cardiovascular Disease
DX: E86.0 Dehydration (principal); J06.9 Acute upper respiratory infection, unspecified; I11.0 Hypertensive heart disease with heart failure; I50.9 Heart failure, unspecified; J44.9 Chronic obstructive pulmonary disease, unspecified; E78.5 Hyperlipidemia, unspecified; E03.9 Hypothyroidism, unspecified; Z87.891 Personal history of nicotine dependence; Z90.49 Acquired absence of other specified parts of digestive tract; Z90.710 Acquired absence of both cervix and uterus
CPT/HCPCS: 94640; 96360; G0463; J7040

== ENCOUNTER → 2024-08-09 | Outpatient (CLI) | payer MEDICARE, OTHER ==
[~2024-08-09] MED LIST changes: +PANT40TA2 PO; -SODIUM CHLORIDE 0.9% 500 ML IV ONE
[2024-08-09 14:45] VITALS: BP 145/74; PULSE 85; RESP 18; O2SAT 97
[2024-08-09] MEDS: LACTULOSE 20Gm/30ML SOLN ONE (15:16)
[2024-08-09] MEDS: LACTULOSE 20Gm/30ML SOLN PO ONE (15:18)
[2024-08-09 15:26] VITALS: BP 132/68; PULSE 74; RESP 18; O2SAT 97
== END | disposition home or self-care (01) ==
LOC: CHF HDHVI 14:40
PROVIDERS: ATTEND Internal Medicine Cardiovascular Disease
DX: E86.0 Dehydration (principal); R53.83 Other fatigue; K59.00 Constipation, unspecified
CPT/HCPCS: G0463

== ENCOUNTER 2024-08-10 17:15 | Inpatient (IN) | payer MEDICARE, OTHER ==
[~2024-08-10] VITALS: Ht 160 cm; Wt 58.9 kg
[~2024-08-10 17:15] MED LIST changes: -PANT40TA2 PO
--- NOTE | 2024-08-10 17:47 | ED.PDOC ---
History of Present Illness HPI Comments 83 y.o female with PMH of COPD, HDL, HTN, and thyroid disease, presents to the ED via EMS for an evaluation of multiple falls that started one day ago. EMS reported patient was found by family on the floor at home today. Patient reports no LOC, complains of right ankle pain at this time,. Triage nurse reports patient complained of non specified body pain such as neck and arms. Patient reports feeling weak and is unable to assisted herself up without falling. Vital signs were stable on arrival Chief Complaint: Fall Injury Time Seen by MD: 17:40 Primary Care Provider: ANTONETTE Reviewed Notes: Nurses Notes, Tray Server Notes, Medications, Allergies Allergies: Coded Allergies: Diphenhydramine (Verified Allergy, Unknown, 11/25/22) Penicillins (Verified Allergy, Unknown, 11/25/22) Home Meds Active Scripts Cephalexin Monohydrate (Cephalexin) 500 Mg Cap, 1 CAP PO QID for 7 Days, #28 CAP Prov:LEBRON MELÉNDEZ DIET THERAPIST 10/30/23 Prednisone (Prednisone) 20 Mg Tab, 40 MG PO DAILY for 5 Days, #10 TAB Prov:LEBRON MELÉNDEZ DIET THERAPIST 10/30/23 Reported Medications Umeclidinium-Vilanterol (Anoro Ellipta 62.5-25 Mcg/INH) 1 Aer Aer, 1 AER IN, AER 10/12/19 Aspirin (Asa) 81 Mg Ch, 81 MG PO DAILY, TAB.CHEW 10/12/19 Cholecalciferol (D3-1000) 1,000 Unit Tab, 2000 UNIT PO DAILY, TAB 20 Furosemide (Lasix) 40 Mg Tab, 40 MG PO PRN, TAB 10/12/19 Lisinopril (Lisinopril) 10 Mg Tab, 10 MG PO BID for 30 Days, MG 10/12/19 Rosuvastatin Calcium (Crestor) 10 Mg Tab, 1 TAB PO DAILY, #30 TAB 5 Refills 10/12/19 Levothyroxine Sodium (Levothyroxine Sodium) 50 Mcg Tab, 50 MCG PO QAM for 30 Days, MCG 10/12/19 Information Source: Patient, Emergency Med Personnel Mode of Arrival: EMS Severity: Moderate Timing: Days (1) Duration: Since onset Prehospital treatment: None Past Medical History PAST MEDICAL HISTORY: Cancer, COPD, High Lipids, HTN, Thyroid Surgical History: Appendectomy, Cholecystectomy, Hysterectomy BARREL PLANER History: No Pertinent BARREL PLANER History Family History Family History: Unknown Social History Smoker: Cigarettes Alcohol: Denies ETOH Use Drugs: Denies Drug Use Lives In: Home Constitutional: reports: fatigue, weakness; denies: chills, diaphoresis, fever, malaise, sweats, others EENTM: denies: blurred vision, double vision, ear bleeding, ear discharge, ear drainage, ear pain, ear ringing, eye pain, eye redness, hearing loss, mouth pain, mouth swelling, nasal discharge, nose bleeding, nose congestion, nose danya n, photophobia, tearing, throat pain, throat swelling, voice changes, others Respiratory: denies: cough, hemoptysis, orthopnea, SOB at rest, shortness of breath, SOB with excertion, stridor, wheezing, others Cardiovascular: denies: chest pain, dizzy spells, diaphoresis, Dyspnea on exertion, edema, irregular heart beat, left arm pain, lightheadedness, palpitations, PND, syncope, others Gastrointestinal: denies: abdomen distended, abdominal pain, blood streaked bowels, constipated, diarrhea, dysphagia, difficulty swallowing, hematemesis, melena, nausea, poor appetite, poor fluid intake, rectal bleeding, rectal pain, vomiting, others Genitourinary: denies: abnormal vagina bleeding, burning, dyspareunia, dysuria, flank pain, frequency, hematuria, incontinence, pain, , vagina discharge, urgency, others Neurological: denies: dizziness, fainting, headache, left sided numbness, left sided weakness, numbness, paresthesia, pre-existing deficit, right sided numbness, right sided weakness, seizure, speech problems, tingling, tremors, weakness, others Musculoskeletal: reports: muscle pain, others (Right ankle pain); denies: back pain, gout, joint pain, joint swelling, muscle stiffness, neck pain Integumetry: denies: bruises, change in color, change in hair/nails, dryness, laceration, lesions, lumps, rash, wounds, others Allergic/Immunocompromised: denies: Difficulty Healing, Frequent Infections, Hives, Itching, others Hematologic/Lymphatic: denies: anemia, blood clots, easy bleeding, easy bruising, swollen glands, others Endocrine: denies: excessive hunger, excessive sweating, excessive thirst, excessive urination, flushing, intolerance to cold, intolerance to heat, unexplained weight gain, unexplained weight loss, others Psychiatric: denies: anxiety, bipolar disorder, depression, hopeless, panic disorder, schizophrenia, sleepless, suicidal, others All Other Systems: Reviewed and Negative Physical Exam General Appearance: Moderate Distress ([id number] distress due to ankle pain concerns and generalized weakness.), Normal HEENT: Normal ENT Inspection, Pharynx Normal, TMs Normal Neck: Full Range of Motion, Non-Tender, Normal, Normal Inspection Respiratory: Chest Non-Tender, Lungs Clear, No Accessory Muscle Use, No Respiratory Distress, Normal Breath Sounds Cardiovascular: No Edema, No JVD, No Murmur, No Gallop, Normal Peripheral Pulses, Regular Rate/Rhythm Breast Exam: Deferred Gastrointestinal: No Organomegaly, Non Tender, No Pulsatile Mass, Normal Bowel Sounds, Soft Genitalia: Deferred Pelvic: Deferred Rectal: Deferred Extremities: Other (Diffuse right ankle pain with some mild edema noted to the lateral malleolus. Mild reduced range of motion. Distal neurovascular intact.) Neurologic: Alert, No Motor Deficits, Normal Affect, Normal Mood, No Sensory Deficits Cerebellar Function: Normal Reflexes: Normal Skin: Dry, Normal Color, Warm Lymphatic: No Adenopathy Was a procedure done? Was a procedure done?: No Differential Dx Considerations may include: Parkinson's disease, stroke, peripheral neuropathy, orthostatic hypotension, Meniere's disease, medication side, arthritis, spinal stenosis, multiple sclerosis, hypothyroidism, anemia, depression, gait disorder, kidney disease X-Ray, Labs, Meds, VS Vital Signs Date Time Temp Pulse Resp B/P (MAP) Pulse Ox O2 Delivery O2 Flow Rate FiO2 08/10/24 19:20 72 17 95 Room Air* 0 21 08/10/24 19:20 97.9 72 17 125/74 (91) 95 97.9 08/10/24 18:30 98.1 81 18 105/71 (82) 94 98.1 08/10/24 18:30 81 18 95 Room Air* 0 21 08/10/24 17:24 98.2 84 16 120/63 (82) 97 Lab Test 08/10/24 18:57 08/10/24 18:00 Range/Units Troponin I High Sensitivity 8 9 </=34 ng/L White Blood Count 9.2 4.4-10.8 10^3/uL Red Blood Count 5.28 H 4.0-5.20 10^6/uL Hemoglobin 16.8 H 12.2-16.2 g/dL Hematocrit 49.3 H 36.0-46.0 % Mean Corpuscular Volume 93.3 80.0-100.0 fL Mean Corpuscular Hemoglobin 31.8 28.0-32.0 pg Mean Corpuscular Hemoglobin Concent 34.0 32.0-36.0 g/dL Red Cell Distribution Width 13.8 11.8-14.3 % Platelet Count 269 140-450 10^3/uL Mean Platelet Volume 8.4 6.9-10.8 fL Neutrophils (%) (Auto) 67.2 37.0-80.0 % Lymphocytes (%) (Auto) 21.3 10.0-50.0 % Monocytes (%) (Auto) 9.5 0.0-12.0 % Eosinophils (%) (Auto) 1.9 0.0-7.0 % Basophils (%) (Auto) 0.1 0.0-2.0 % Neutrophils # (Auto) 6.2 1.6-8.6 10 ^3/uL Lymphocytes # (Auto) 2.0 0.4-5.4 10 ^3/uL Monocytes # (Auto) 0.9 0-1.3 10 ^3/uL Eosinophils # (Auto) 0.2 0-0.8 10 ^3/uL Basophils # (Auto) 0 0-0.2 10 ^3/uL Nucleated Red Blood Cells 0.2 % Sodium Level 138 136-145 mmol/L Potassium Level 4.2 3.5-5.1 mmol/L Chloride Level 102 98-107 mmol/L Carbon Dioxide Level 25 20-31 mmol/L Anion Gap 11 5-15 Blood Urea Nitrogen 83 *H 9-23 mg/dL Creatinine 2.22 H 0.550-1.02 mg/dL Glomerular Filtration Rate Calc 21 >90 mL/min BUN/Creatinine Ratio 37.4 H 10.0-20.0 Serum Glucose 120 H 74-106 mg/dL Lactic Acid Level 1.2 0.4-2.0 mmol/L Calcium Level 10.0 8.7-10.4 mg/dL Total Bilirubin 1.1 H 0.2-1.0 mg/dL Aspartate Amino Transferase (AST) 30 13-40 U/L Alanine Aminotransferase (ALT) 68 H 7-40 U/L Alkaline Phosphatase 174 H 46-116 U/L B-Type Natriuretic Peptide 32.71 0-100 pg/mL Total Protein 6.8 5.7-8.2 g/dL Albumin 4.2 3.2-4.8 g/dL Current Medications Medications (Trade) Dose Ordered Sig/Guera Route Start Time Stop Time Status Last Admin Sodium Chloride 1,000 ml @ 125 mls/hr Q8H ONCE IV 08/10/24 17:45 08/11/24 01:44 08/10/24 19:02 X-Ray, Labs, Meds, VS Comment All studies performed the ED today were reviewed by me personally. CT of the head was unremarkable for any acute intracranial process or mass lesions. Right ankle x-ray was unremarkable for any acute fractures or dislocations. CT of abdomen was pending at time of this note. Laboratories remarkable for signs of advanced kidney disease with a BUN of 83. Patient was anemic as well. Patient will be admitted for nephrology evaluation to assess new onset or acute on chronic concerns as well as failure to thrive concerns. Patient may require dialysis. Time of 1ST Reevaluation: 19:55 Reevaluation 1ST: Improved Consultation: PCP Patient Education/Counseling: Diagnosis, Treatment, Prognosis Family Education/Counseling: Diagnosis, Treatment, No Family Present Departure 1 Departure Time of Disposition: 19:58 Impression: Primary Impression: [id number] kidney injury Additional Impressions: Anemia Multiple falls Failure to thrive Disposition: ADMITTED INPATIENT Condition: Fair Discharged With: Self Critical Care Note Critical Care Time?: No Stability Stability form required: No I personally scribed for KARLENE HAGER PAC ([email or web address]) on 08/10/24 at 17:47. Electronically submitted by Abby Begum ([facility]). KARLENE HAGER PAC Aug 10, 2024 17:47
[2024-08-10 18:20] LABS: Basophils # (auto) 0 10 ^3/uL (0-0.2); Basophils % (auto) 0.1 % (0.0-2.0); Eosinophils # (auto) 0.2 10 ^3/uL (0-0.8); Eosinophils % (auto) 1.9 % (0.0-7.0); Hematocrit 49.3 % (36.0-46.0); Hemoglobin 16.8 g/dL (12.2-16.2); Lymphocytes % (auto) 21.3 % (10.0-50.0); Mean Corpuscular Hemoglobin 31.8 pg (28.0-32.0); Mean Corpuscular Volume 93.3 fL (80.0-100.0); Monocytes # (auto) 0.9 10 ^3/uL (0-1.3); Monocytes % (auto) 9.5 % (0.0-12.0); Neutrophils # (auto) 6.2 10 ^3/uL (1.6-8.6); Neutrophils % (auto) 67.2 % (37.0-80.0); Nucleated Red Blood Cells % 0.2 %; Platelet Count (auto) 269 10^3/uL (140-450); Red Blood Cells 5.28 10^6/uL (4.0-5.20); Red Cell Distribution Width 13.8 % (11.8-14.3); White Blood Cell 9.2 10^3/uL (4.4-10.8)
[2024-08-10 18:30] VITALS: PULSE 81; RESP 18; O2SAT 95
[2024-08-10 18:38] LABS: Albumin 4.2 g/dL (3.2-4.8); Anion Gap 11 (5-15); Aspartate Aminotransferase 30 U/L (13-40); BUN/Creatinine Ratio 37.4 (10.0-20.0); Carbon Dioxide 25 mmol/L (20-31); Chloride 102 mmol/L (98-107); Potassium 4.2 mmol/L (3.5-5.1); Sodium 138 mmol/L (136-145)
[2024-08-10 18:39] LABS: Bilirubin, Total 1.1 mg/dL (0.2-1.0); Total Protein 6.8 g/dL (5.7-8.2)
[2024-08-10 18:49] LABS: Alanine Aminotransferase 68 U/L (7-40); Alkaline Phosphatase 174 U/L (46-116); Glucose 120 mg/dL (74-106)
[2024-08-10 18:54] LABS: Blood Urea Nitrogen 83 mg/dL (9-23)
[2024-08-10] MEDS: SODIUM CHLORIDE 0.9% 1,000 ML IV ONE (19:02)
--- NOTE | 2024-08-10 19:17 | DVH ---
EXAM: CT HEAD WITHOUT CONTRAST INDICATION: Altered mental status TECHNIQUE: CT of the head without intravenous contrast. Radiation Dose : 1. Head: CT Dose: CTDI volume is 50.9 mGy. Dose-length product is 814 mGy*cm The dose indicators for CT are the volume Computed Tomography (CT) Dose Index (CTDIvol) and the Dose Length Product (DLP), and are measured in units of mGy and mGy-cm, respectively. These indicators are not patient dose, but values generated from the CT scanner acquisition factors. The report includes radiation exposure data for exposures received during this examination. COMPARISON: HEAD WITHOUT CONTRAST on DOS: 01/25/22, CERVICAL WITHOUT CONTRAST on DOS: 06/10/21 FINDINGS: There is no evidence of acute intracranial hemorrhage, extra-axial collection, mass effect, midline s hift, herniation or hydrocephalus. The ventricles, sulci and cisterns are age appropriate. The nolan-white differentiation is intact. Patchy periventricular and subcortical white matter hypoattenuation is nonspecific but may be related to small vessel ischemic disease. The visualized paranasal sinuses and mastoid air cells are clear. The surrounding soft tissues and osseous structures are unremarkable. IMPRESSION: 1. No acute intracranial abnormality. Radiation optimization: All CT scans at this facility use at least one of these dose optimization arden hniques: automated exposure control mA and/or kV adjustment per patient size (includes targeted exam s where dose is matched to clinical indication) or iterative reconstruction.
[2024-08-10 19:20] VITALS: PULSE 72; RESP 17; O2SAT 95
--- NOTE | 2024-08-10 19:25 | DVH ---
EXAM: XY R ANKLE 3 VIEW CLINICAL HISTORY: Fall/trauma COMPARISON: None TECHNIQUE: XY R ANKLE 3 VIEW Findings/Impression: 3 views of the right ankle. There is no evidence of dislocation, blastic, or lytic lesions. Doubt nondisplaced avulsion fracture of the lateral malleolus. Correlate with physical exam and point tenderness. No radiopaque foreign bodies. No joint effusion. Mild soft tissue edema.
--- NOTE | 2024-08-10 21:48 | DVH ---
Exam: CT CT AB PEL WO CON-NO ORAL OR IV History: Elevated laboratories Comparison Study: [facility] on DOS: 09/01/22 Technique: Multidetector spiral CT of the abdomen was performed from lung bases to pubic symphysis. Imaging was performed without IV contrast. Axial, coronal and sagittal multiplanar reformats were ob tained from the axial data set by the technologist. Radiation Dose : 1. Abdomen/Pelvis: CTDIvol 8 mGy, DLP 429 mGy*cm. Findings: Evaluation of solid organs is limited due to lack of intravenous contrast use. Lung Bases: Multifocal nodular densities throughout both lungs, compatible with multifocal pneumonia. Liver: The liver is normal in size. No focal lesions. Gallbladder and Biliary Tree: Gallbladder is surgically absent. Spleen: Unremarkable Pancreas: The pancreas is grossly normal in appearance. Adrenal Glands: Unremarkable Kidneys: No hydronephrosis. 5 mm nonobstructing calculi in the midpole of the left kidney. Bladder: Grossly unremarkable for degree of distention. Bowel: Moderate hiatal hernia. Small bowel and colon are normal in caliber and distribution. The luda endix is not visualized; however, no secondary findings of acute appendicitis identified. Colonic div erticulosis without evidence of diverticulitis. Ascites: Absent Lymphadenopathy: No mesenteric, retroperitoneal or periportal lymphadenopathy. Abdominal Wall and Mesentery: Unremarkable. Vasculature: The visualized abdominal aorta is normal in size and caliber. Evaluation of abdominal a nd pelvic vessels is limited due to lack of intravenous contrast. Diffuse vascular calcifications. Pelvic Organs: Unremarkable Musculoskeletal: No aggressive focal bony lesions, acute fractures or dislocation. IMPRESSION: 1. No acute abdominal or pelvic findings. 2. Moderate hiatal hernia. 3. Colonic diverticulosis without evidence of diverticulitis. Radiation optimization: All CT scans at this facility use at least one of these dose optimization arden hniques: automated exposure control mA and/or kV adjustment per patient size (includes targeted exam s where dose is matched to clinical indication) or iterative reconstruction.
[2024-08-10] MEDS ORDERED: ONDANSETRON HCL 4 MG/2 ML VIAL IV PRN (22:15)
[2024-08-10] MEDS ORDERED: MORPHINE SULFATE INJ 2 MG/ml SYRG IV PRN ×2 (22:15)
[2024-08-10] MEDS ORDERED: NITROGLYCERIN 0.4 MG SL TAB SL PRN (22:15)
[2024-08-10] MEDS ORDERED: ACETAMINOPHEN 325 MG TAB PO PRN (22:15)
[2024-08-10] MEDS: SODIUM CHLORIDE 0.9% 1,000 ML IV SCH (22:28)
[2024-08-11] VITALS (14 sets, daily range): BP systolic 106–119; BP diastolic 52–69; PULSE 59–80; RESP 12–18; TEMP 97.5–98.6; O2SAT 90–99
--- NOTE | 2024-08-11 01:58 | DVHHPRES ---
History of Present Illness Resident Creating Document: MALIK ORTIZ RESIDENT Reason for Visit: multiple falls episodes History of Present Illness 83-year-old female patient with past medical history of COPD, hyperlipidemia, hypertension, hypothyroidism, remote history of cancer presents to the hospital with complaints of frequent falls. The symptoms started 1 day prior when the patient was found on the floor at home by her family. She denies any loss of consciousness but reports significant fear and inability to ambulate. Although she normally uses a walker. She also reports tenderness on the left lower quadrant on physical exam also she does not endorse associated symptoms such as nausea, vomiting but she reports she was constipated for the past week but after taking 1 medication provided by her PCP yesterday she had a bowel movement. The patient was notably very frail, weak and appeared sleepy during the conver sation, making it challenging to gather a complete history. Her vital signs were stable on admission. Physical exam revealed tenderness in the left lower quadrant of the abdomen without rebound or guarding. There was no evidence of edema or other abnormalities in the right ankle. Imaging studies included CT of the abdomen which showed colonic diverticulosis without evidence of diverticulitis and a moderate hiatal hernia. X-rays of the right ankle were unremarkable, with no dislocations or lesions noted. Laboratory studies revealed hemoglobin level of 16.8 grams/deciliter and a hemoglobin A1c of 5.8% consistent with prediabetes. Her home medications include cephalexin, prednisone, [place] duodenum/vilanterol, aspirin, cholecalciferol, furosemide, lisinopril, rosuvastatin, levothyroxine. She denies alcohol, drug or tobacco use. Socially she lives with the family and is dependent on a walker for mobility. Past Medical History COPD, hyperlipidemia, hypertension, hypothyroidism, remote history of cancer,prediabetes Smoke: No ALCOHOL: none Drugs: None Lives: with Family Domestic Violence: Neg Review of Systems Review of Systems General: Reports frequent falls and generalized weakness. Denies fever, chills or weight changes. Appear frail and very sleepy during the interview. Skin: No rashes, bruising or lesions reported Eyes: No changes in vision or eye pain ENT: Difficulty hearing reported. No ear pain nasal congestion or sore throat Respiratory: No shortness of breath, cough, or wheezing Cardiovascular: No chest pain, palpitations, or edema Gastrointestinal: Reports left lower quadrant abdominal tenderness. Denies nausea, vomiting, diarrhea, constipation (she had constipation for the last week that resolved yesterday) or changes in bowel habits Musculoskeletal: Reports right ankle pain without swelling. Denies joint stiffness, redness or other joint pain Neurological: Denies loss of consciousness, seizures, or stroke-like symptoms. Reports difficulty ambulating but denies numbness or tingling Psychiatry: Reports fear and anxiety regarding inability to ambulate. Not orde r psychiatric symptoms reported Allergies: Coded Allergies: Diphenhydramine (Verified Allergy, Unknown, 11/25/22) Penicillins (Verified Allergy, Unknown, 11/25/22) Medications Current Medications Medications Dose Ordered Sig/Guera Route Start Time Stop Time Status Last Admin Dose Admin Sodium Chloride 1,000 ml @ 60 mls/hr [id number] IV 08/10/24 22:15 08/10/24 22:28 60 MLS/HR Ondansetron HCl 4 mg Q4HP PRN IV 08/10/24 22:15 Acetaminophen 650 mg Q6HP PRN PO 08/10/24 22:15 Morphine Sulfate 2 mg Q4HPRN PRN IV 08/10/24 22:15 Enoxaparin Sodium 30 mg DAILY SC 08/11/24 10:00 Nitroglycerin 0.4 mg Q5MINP PRN SL 08/10/24 22:15 Morphine Sulfate 2 mg Q30M PRN IV 08/10/24 22:15 Exam Vital Signs Vital Signs Date Time Temp Pulse Resp B/P (MAP) Pulse Ox O2 Delivery O2 Flow Rate FiO2 08/11/24 00:00 71 17 115/68 (84) 93 08/10/24 19:20 Room Air* 0 21 08/10/24 19:20 97.9 97.9 Exam Examination General Appearance: Appears frail and weak. Alert but very sleepy during interview Respiratory: Clear to auscultation, Normal air movement Cardiovascular: Regular rate, Normal S1, Normal S2 Abdominal: Normal bowel sounds Extremities: Right ankle: No edema, erythema or deformity. Mild tenderness on palpation. Full range of motion but limited by discomfort. Neuro: Alert but very sleepy. Cranial nerves 2-12 grossly intact. No focal deficits. Strength 3/5 in bilateral upper and lower extremities. Decreased mobility and inability to ambulate. Gait not assessed due to patient's condition. Labs/Xrays Labs Test 08/10/24 21:10 08/10/24 18:57 08/10/24 18:00 Range/Units Troponin I High Sensitivity 8 </=34 ng/L Thyroid Stimulating Hormone (TSH) 2.21 0.55-4.78 uIU/mL White Blood Count 9.2 4.4-10.8 10^3/uL Red Blood Count 5.28 H 4.0-5.20 10^6/uL Hemoglobin 16.8 H 12.2-16.2 g/dL Hematocrit 49.3 H 36.0-46.0 % Mean Corpuscular Volume 93.3 80.0-100.0 fL Mean Corpuscular Hemoglobin 31.8 28.0-32.0 pg Mean Corpuscular Hemoglobin Concent 34.0 32.0-36.0 g/dL Red Cell Distribution Width 13.8 11.8-14.3 % Platelet Count 269 140-450 10^3/uL Mean Platelet Volume 8.4 6.9-10.8 fL Neutrophils (%) (Auto) 67.2 37.0-80.0 % Lymphocytes (%) (Auto) 21.3 10.0-50.0 % Monocytes (%) (Auto) 9.5 0.0-12.0 % Eosinophils (%) (Auto) 1.9 0.0-7.0 % Basophils (%) (Auto) 0.1 0.0-2.0 % Neutrophils # (Auto) 6.2 1.6-8.6 10 ^3/uL Lymphocytes # (Auto) 2.0 0.4-5.4 10 ^3/uL Monocytes # (Auto) 0.9 0-1.3 10 ^3/uL Eosinophils # (Auto) 0.2 0-0.8 10 ^3/uL Basophils # (Auto) 0 0-0.2 10 ^3/uL Nucleated Red Blood Cells 0.2 % Sodium Level 138 136-145 mmol/L Potassium Level 4.2 3.5-5.1 mmol/L Chloride Level 102 98-107 mmol/L Carbon Dioxide Level 25 20-31 mmol/L Anion Gap 11 5-15 Blood Urea Nitrogen 83 *H 9-23 mg/dL Creatinine 2.22 H 0.550-1.02 mg/dL Glomerular Filtration Rate Calc 21 >90 mL/min BUN/Creatinine Ratio 37.4 H 10.0-20.0 Serum Glucose 120 H 74-106 mg/dL Hemoglobin A1c 5.8 H <5.7 % A1C Lactic Acid Level 1.2 0.4-2.0 mmol/L Calcium Level 10.0 8.7-10.4 mg/dL Total Bilirubin 1.1 H 0.2-1.0 mg/dL Aspartate Amino Transferase (AST) 30 13-40 U/L Alanine Aminotransferase (ALT) 68 H 7-40 U/L Alkaline Phosphatase 174 H 46-116 U/L B-Type Natriuretic Peptide 32.71 0-100 pg/mL Total Protein 6.8 5.7-8.2 g/dL Albumin 4.2 3.2-4.8 g/dL Assessment/Plan Assessment/Plan #Frequent falls likely multifactorial due to ? deconditioning, generalized wea kness due to possible nutritional deficiencies -CT scan of the head was negative -physical therapy -fall precautions -b12 levels -b9 levels #? Dementia, without behavioral disturbance -Vitamin B12 -Vitamin-D -TSH # MARIBELL due to VMN -urine sodium -kidney ultrasound -urine creatinine #Right ankle pain -X-rays showed no fracture or dislocation -Continue pain management with acetaminophen as needed #Diverticulosis without diverticulitis of large intestine without perforation -monitor #Essential hypertension -monitor #COPD, unspecified -monitor -medneb inh Hypothyroidism, unspecified -monitor Discussed with Dr. Betancur Goals of care discussed with the patient for 32 minutes Code status: Full code Plan discussed with: Patient My Orders Orders - MALIK ORTIZ RESIDENT Procedure Category Date Status Time Admit ADMIT 08/10/24 Transmitted 22:11 Allergies MARIO 08/10/24 In Process 22:11 Code Status CODE 08/10/24 Transmitted 22:11 Renal DIET 08/11/24 Transmitted Standard(2gna,3gk,Lopho) Breakfast Sodium Chloride 0.9% PHA 08/10/24 In Process 22:15 Ondansetron Hcl PHA 08/10/24 In Process (Zofran) 22:15 Fall Risk Precautions MARIO 08/10/[address] 22:11 Complete Blood Count LAB 08/11/24 Logged 04:00 Comprehensive LAB 08/11/24 Logged Metabolic Panel 04:00 Acetaminophen Tablet PHA 08/10/24 In Process (Tylenol Tablet) 22:15 Morphine Sulfate PHA 08/10/24 In Process Injection 22:15 Nitroglycerin PHA 08/10/24 In Process Sublingual (Ntrostat 22:15 Morphine Sulfate PHA 08/10/24 In Process Injection 22:15 Oxygen By Nasal RT 08/10/24 Transmitted Cannula 22:11 Stat Ekg For Chest MARIO 08/10/24 In Process Pain 22:11 Notify Md Of Changes MARIO 08/10/24 In Process From Base 22:11 Geometry Professor For MARIO 08/10/24 In Process 24 Hours 22:11 Emergency Dysrhythmia MARIO 08/10/24 In Process Protocol 22:11 Rhythm Strips Once MARIO 08/10/24 In Process Every Shift 22:11 Enoxaparin Sodium PHA 08/11/24 In Process (Lovenox) 10:00 Vitamin B12 LAB 08/10/24 Logged 22:26 Orthostatic Vital ORDERS 08/10/24 Transmitted Signs 22:26 Date of Service: Aug 10, 2024 Billing Provider: SHAQUILLE BETANCUR MD Common Visit Codes: 65930-[id number] INP/OBS CARE (HIGH) Secondary Visit Codes: [id number] CARE PLAN 30 MINUTES MALIK ORTIZ RESIDENT Aug 11, 2024 01:58 SHAQUILLE BETANCUR MD Aug 11, 2024 19:36
[2024-08-11 06:15] LABS: Basophils # (auto) 0 10 ^3/uL (0-0.2); Basophils % (auto) 0.1 % (0.0-2.0); Eosinophils # (auto) 0.1 10 ^3/uL (0-0.8); Eosinophils % (auto) 1.7 % (0.0-7.0); Hematocrit 45.4 % (36.0-46.0); Hemoglobin 15.4 g/dL (12.2-16.2); Lymphocytes # (auto) 2.3 10 ^3/uL (0.4-5.4); Lymphocytes % (auto) 27.3 % (10.0-50.0); Mean Corpuscular Hemoglobin 31.7 pg (28.0-32.0); Mean Corpuscular Hgb Conc. 33.8 g/dL (32.0-36.0); Mean Corpuscular Volume 93.8 fL (80.0-100.0); Monocytes # (auto) 0.7 10 ^3/uL (0-1.3); Monocytes % (auto) 8.6 % (0.0-12.0); Neutrophils # (auto) 5.2 10 ^3/uL (1.6-8.6); Neutrophils % (auto) 62.3 % (37.0-80.0); Nucleated Red Blood Cells % 0.2 %; Platelet Count (auto) 252 10^3/uL (140-450); Red Blood Cells 4.85 10^6/uL (4.0-5.20); White Blood Cell 8.3 10^3/uL (4.4-10.8)
[2024-08-11] MEDS: PANTOPRAZOLE 40 MG/10 ML VIAL INJ IV ONE (06:15)
[2024-08-11 07:01] LABS: Albumin 4.1 g/dL (3.2-4.8); Anion Gap 11 (5-15); Aspartate Aminotransferase 31 U/L (13-40); BUN/Creatinine Ratio 35.2 (10.0-20.0); Bilirubin, Total 1.2 mg/dL (0.2-1.0); Calcium 9.4 mg/dL (8.7-10.4); Carbon Dioxide 24 mmol/L (20-31); Chloride 99 mmol/L (98-107); Glucose 91 mg/dL (74-106); Potassium 3.8 mmol/L (3.5-5.1); Total Protein 6.6 g/dL (5.7-8.2)
[2024-08-11 07:04] LABS: Alkaline Phosphatase 147 U/L (46-116); Blood Urea Nitrogen 69 mg/dL (9-23); Sodium 134 mmol/L (136-145)
[2024-08-11 07:05] LABS: Alanine Aminotransferase 50 U/L (7-40)
--- NOTE | 2024-08-11 07:32 | DVH ---
INDICATION: UTI obstruction TECHNIQUE: Multiple real-time sonographic images of the kidneys and urinary bladder were obtained. COMPARISON: CT scan of the abdomen pelvis performed on 08/10/2024. FINDINGS: The right kidney measures 5.5 cm in length. Please note in the kidney is not visualized in its entir ety. The right renal echotexture, contour and cortical thickness are within normal limits. No hydrone phrosis or large masses/calculi are seen. The left kidney measures 7.4 cm in length. The left renal echotexture, contour, and cortical thicknes s are within normal limits. No hydronephrosis or large masses/calculi are seen. No echogenic intraluminal masses are seen in the bladder. No urinary bladder wall abnormality. Bilat eral ureteral jets are not visualized Prevoid residual measures 310.7 cc. IMPRESSION: 1. Suboptimal study. No hydronephrosis.
[2024-08-11 07:44] LABS: INR 0.99 (0.9-1.15); Prothrombin Time 10.5 sec (9.3-11.8)
[2024-08-11] MEDS: CHOLECALCIFEROL (VITD3) 1,000UNIT=25mCg TAB PO SCH (10:02)
[2024-08-11] MEDS: ENOXAPARIN SOD 30 MG/0.3 ML SYRINGE SC SCH (10:02)
[2024-08-11] MEDS: PANTOPRAZOLE 40 MG/10 ML VIAL INJ IV SCH (10:04)
[2024-08-11] MEDS: SODIUM CHLORIDE 0.9% 1,000 ML IV SCH (11:30)
[2024-08-11] MEDS: ALBUTEROL SULF 2.5 MG/0.5ML(0.5%) NEB SOLN NEB SCH (12:15)
[2024-08-11] MEDS: IPRATROPIUM BROM 0.5 MG/2.5ML INH SOL NEB SCH (12:15)
--- NOTE | 2024-08-11 12:40 | ECG ---
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
--- NOTE | 2024-08-11 14:27 | DVHPN2 ---
Progress Note - Dictate Date Seen: Aug 10, 2024 Medical Necessity Reason Pt with a Central, PICC or Fol: No Subjective PT WITH SS COMPLEX LE PAIN LETHARGY FATIGUE PMH; CHEST PAIN HX OF CAD HX OF [place] 10/2019 S/P [facility] 2022 * Left main without any flow restrictive lesion, short left main. * Left anterior descending artery, mild intimal irregularity without any flow restrictive lesion. * Circumflex, mild intimal irregularity without any flow restrictive lesion. * Right coronary artery in the mid portion had about a 50-60% narrowing. The patient underwent FFR of the right coronary artery, found to have an FFR of 0.81. Therefore, we elected not to intervene * Ventriculogram was done using 6-[place] pigtail catheter. EF around 65% with an LVEDP elevated at about 18 mmHg with no gradient across the aortic valve. COPD HTN SKIN CANCER HYPOTHYROIDISM SURGICAL HX PTCA CHOLECYSTECTOMY APPENDECTOMY SEVERE HYPOKALEMIA HYPOVOLEMIA vital signs Vital Sign Date Time Temp Pulse Resp B/P (MAP) Pulse Ox O2 Delivery O2 Flow Rate FiO2 08/11/24 13:12 98.2 80 12 118/59 (78) 94 98.2 08/11/24 12:43 0.0 08/11/24 12:15 Room Air 08/11/24 12:15 21 Total Intake and Output 08/10/24 08/10/24 08/11/24 15:00 23:00 07:00 Intake Total 375 ml 220 ml Balance 375 ml 220 ml medications Current Medications Medications Dose Ordered Sig/Guera Route Start Time Stop Time Status Last Admin Dose Admin Ondansetron HCl 4 mg Q4HP PRN IV 08/10/24 22:15 Acetaminophen 650 mg Q6HP PRN PO 08/10/24 22:15 Morphine Sulfate 2 mg Q4HPRN PRN IV 08/10/24 22:15 Enoxaparin Sodium 30 mg DAILY SC 08/11/24 10:00 08/11/24 10:02 30 MG Nitroglycerin 0.4 mg Q5MINP PRN SL 08/10/24 22:15 Morphine Sulfate 2 mg Q30M PRN IV 08/10/24 22:15 Pantoprazole Sodium 40 mg DAILY IV 08/11/24 10:00 08/11/24 10:04 40 MG Albuterol 2.5 mg Q6HWA NEB 08/11/24 12:00 08/11/24 12:15 2.5 MG Ipratropium [place] 0.5 mg Q6HWA NEB 08/11/24 12:00 08/11/24 12:15 0.5 MG Levothyroxine Sodium 50 mcg QAM@0600 PO 08/12/24 06:00 Cholecalciferol 1,000 unit DAILY PO 08/11/24 10:00 08/11/24 10:02 1,000 UNIT Sodium Chloride 1,000 ml @ 100 mls/hr Q10H IV 08/11/24 11:30 08/11/24 19:00 08/11/24 12:35 100 MLS/HR laboratory and microbiology Laboratory Tests 08/11/24 05:11 Test 08/11/24 05:11 Range/Units Serum Glucose 91 74-106 mg/dL Problem List SS COMPLEX LE PAIN LETHARGY FATIGUE PMH; CHEST PAIN HX OF CAD HX OF [place] 10/2019 S/P [facility] 2022 * Left main without any flow restrictive lesion, short left main. * Left anterior descending artery, mild intimal irregularity without any flow restrictive lesion. * Circumflex, mild intimal irregularity without any flow restrictive lesion. * Right coronary artery in the mid portion had about a 50-60% narrowing. The patient underwent FFR of the right coronary artery, found to have an FFR of 0.81. Therefore, we elected not to intervene * Ventriculogram was done using 6-[place] pigtail catheter. EF around 65% with an LVEDP elevated at about 18 mmHg with no gradient across the aortic valve. COPD HTN SKIN CANCER HYPOTHYROIDISM SURGICAL HX PTCA CHOLECYSTECTOMY APPENDECTOMY SEVERE HYPOKALEMIA HYPOVOLEMIA Assessment/Plan IV FLUID PT IS AOUT 3.[address] HEAD NEGATIVE [address] OF ABD NEGATIVE FOR ANY ACUTE PROCESS HH DIVERTICULOSIS RENAL U/S NEGATIVE Plan discussed with: Patient Critical Care Time(min): 35 ANTONETTE DAVIS MD Aug 11, 2024 14:27
[2024-08-11] MEDS: AZITHROMYCIN 500MG/ 250ML 250 ML IV ONE (17:35)
[2024-08-11 18:54] LABS: Urine Bacteria FEW /hpf (None Seen); Urine Blood Negative /uL (Negative); Urine Clarity Clear (Clear); Urine Color Light-Yellow (Yellow); Urine Hyaline Cast FEW /lpf (0 - 2); Urine Mucus FEW (None Seen); Urine Protein, UAD Negative (Negative); Urine Specific Gravity 1.015 (1.001-1.035); Urine Urobilinogen Normal (Negative); Urine WBC 1 /hpf (0 - 5); Urine pH 5.5 (5.0-9.0)
[2024-08-11 19:04] LABS: Sodium Urine 15 mmol/L (40-220)
[2024-08-11 19:10] LABS: Amphetamine Screen, Urine Neg (NEGATIVE); Barbiturate Scree,Urine Neg (NEGATIVE); Benzodiazephine Screen, Urine Neg (NEGATIVE)
[2024-08-11 19:11] LABS: Cannabinoid Screen, Urine Neg (NEGATIVE); Cocaine Screen, Urine Neg (NEGATIVE); Opiate Scree,Urine Neg (NEGATIVE); Phencyclidine Screen, Urine Neg (NEGATIVE)
--- NOTE | 2024-08-11 21:07 | DVHPNRES ---
Progress Note Date Seen: Aug 11, 2024 Resident Creating Document: KIMBERLEY TESFAYE RESIDENT Medical Necessity Reason Pt with a Central, PICC or Fol: No Medical Necessity Reason Ground level fall, Generalized body pain disorientation Subjective Review of Systems This is an 83-year-old female past medical history significant for COPD, hyperlipidemia, hypertension, hypothyroidism, remote history of cancer presented to the ED with a chief complaint of a fall and pain on her on her left side. Patient was taken to the patio for a cigarette smoke by her daughter. Daughter said she walked into the house and the next thing she heard was a loud on the patio. There was her mother on the ground. Patient denied, palpitation, sweating, loss of consciousness just prior to the fall. She normally ambulates with a walker. Patient denied nausea, vomiting but she reports she was constipated for the past week but after taking lactulose provided by he PCP on Wednesday and had a bowel movement. Her vital signs were stable on admission. Lab revealed WBC which was unremarkable, hemoglobin reveals 16.8, A1c 5.8, creatinine initially was 2.2---> 1.6. Imaging studies included CT abdomen showed colonic diverticulosis without evidence of diverticulitis and a moderate hiatal hernia. X-rays of the right ankle were unremarkable, with no dislocations or lesions noted. Of note, according to her daughter for the past 3 weeks, she has noticed her mother a little disoriented or hallucinating. Sometimes, patients seemed to be communicating with her parents, or accusing her daughter of writing in her books. No known history of dementia. Her home medications include cephalexin, prednisone, [place] duodenum/vilanterol, aspirin, cholecalciferol, furosemide, lisinopril, rosuvastatin, levothyroxine. Constitutional: Denies fever no chills, in generalized body pain especially on the right side right HEENT: Denies headache, ear pain, ear discharges, conjunctivitis, nasal discharge throat pain Cardiovascular: Denies chest pain, palpitation, orthopnea, PND, or pedal edema Respiratory: Denies shortness of breath, cough cough, sputum production, hemoptysis, GI: abdominal pain, nausea, vomiting, diarrhea, hematemesis, hematochezia,, She also reports tenderness on the left lower quadrant. : Denies frequency, urgency, hematuria, Endocrine: Denies unintentional weight gain or weight loss, feeling of hot flashes, Bennie/onco: Denies easy bruising, bleeding disorders, epistaxis Musculoskeletal: Reports right ankle pain without swelling. pain the right lower quadrant. Neurological: Denies loss of consciousness, seizures, or stroke-like symptoms. Reports difficulty ambulating but denies numbness or tingling Psychiatry: Reports fear and anxiety regarding inability to ambulate. Not order psychiatric symptoms reported Past Medical History: COPD, hyperlipidemia, hypertension, hypothyroidism, remote history of cancer,prediabetes Surgical history: Appendectomy Social: lives with her only daughter. Smoke: 35 pack years Family history: her 2 daughter of stroke. Domestic Violence: Neg Objective vital signs Vital Sign Date Time Temp Pulse Resp B/P (MAP) Pulse Ox O2 Delivery O2 Flow Rate FiO2 08/11/24 19:39 67 17 99 08/11/24 19:33 Room Air* 0 21 08/11/24 17:19 98.2 110/69 (83) 98.2 Total Intake and Output 08/10/24 08/10/24 08/11/24 15:00 23:00 07:00 Intake Total 375 ml 220 ml Balance 375 ml 220 ml medications Current Medications Medications Dose Ordered Sig/Guera Route Start Time Stop Time Status Last Admin Dose Admin Ondansetron HCl 4 mg Q4HP PRN IV 08/10/24 22:15 Acetaminophen 650 mg Q6HP PRN PO 08/10/24 22:15 Morphine Sulfate 2 mg Q4HPRN PRN IV 08/10/24 22:15 Enoxaparin Sodium 30 mg DAILY SC 08/11/24 10:00 08/11/24 10:02 30 MG Nitroglycerin 0.4 mg Q5MINP PRN SL 08/10/24 22:15 Morphine Sulfate 2 mg Q30M PRN IV 08/10/24 22:15 Pantoprazole Sodium 40 mg DAILY IV 08/11/24 10:00 08/11/24 10:04 40 MG Albuterol 2.5 mg Q6HWA NEB 08/11/24 12:00 08/11/24 19:35 2.5 MG Ipratropium [place] 0.5 mg Q6HWA NEB 08/11/24 12:00 08/11/24 19:35 0.5 MG Levothyroxine Sodium 50 mcg QAM@0600 PO 08/12/24 06:00 Cholecalciferol 1,000 unit DAILY PO 08/11/24 10:00 08/11/24 10:02 1,000 UNIT Azithromycin 250 ml @ 125 mls/hr DAILY IV 08/12/24 10:00 Examination General examination- Not in acute distress, emotionally sad HEENT: PEERLA, no acute nasal discharge Chest: S1-S2 audible, rate and rhythm regular, no murmur Lung: CTAB, no wheeze or rhonchi Abdomen: Nondistend, BS+, nontenderness, no organomegaly Musculoskeletal: tenderness on the right side Extremity: no leg edema, right ankle tenderness. No fracture noted on imaging Neurological: cranial nerves intact, no acute dysarthria or dysphagia Psychiatry-- Sad, missing her 2 daughters who . Skin- no acute rash or purpura laboratory and microbiology Laboratory Tests 08/11/24 05:11 Test 08/11/24 05:11 Range/Units Serum Glucose 91 74-106 mg/dL Problem List/Assessment/Plan Problem List/Assessment/Plan Dehydration Hold all anti hypertensive medications --> Hold furosemide --> Adequate hydration with NS Fall secondary to dehydration --> Monitor volume status --> Monitor orthostatic BP Fally due to polypharmacy --> Hold diuretics and anti-hypertensives Acute on chronic kidney failure --> Baseline Cr: 1.19 --> hydrate with n/s 100ml/hr --> Repeat labs in AM COPD 35 pack years still smoking Not in respiratory distress Breathing treatment PRN Keep monitoring hypertension --> Holding off on all --> BP: 110/69 Hypothyroidism --> levothyroxine 50mcg at home Hyperlipidemia --> Statin Code status: Full Goal of care discussed for more than 35 minute Case and plan discussed with Dr. Asif Plan discussed with: Patient, Daughter My Orders My Orders Orders - KIMBERLEY TESFAYE Procedure Category Date Status Time Bladder Scan ORDERS 08/11/24 Transmitted 15:43 Orthostatic Vital ORDERS 08/11/24 Transmitted Signs 15:43 Azithromycin 500mg/ PHA 08/12/24 In Process 250ml (Zithromax 50 10:00 Date of Service: Aug 11, 2024 Billing Provider: ZUNILDA HOLLAND MD Common Visit Codes: [id number] INP/OBS CARE(HIGH) KIMBERLEY TESFAYE Aug 11, 2024 21:07 ZUNILDA HOLLAND MD Aug 13, 2024 23:03
[2024-08-12] VITALS (13 sets, daily range): BP systolic 104–111; BP diastolic 46–56; PULSE 54–80; RESP 12–18; TEMP 97.4–98.9; O2SAT 92–100
[2024-08-12] MEDS: LEVOTHYROXINE SODIUM 50 MCG TAB PO SCH (05:23)
[2024-08-12] MEDS: AZITHROMYCIN 500MG/ 250ML 250 ML IV SCH (10:02)
[2024-08-12 10:55] LABS: Alanine Aminotransferase 35 U/L (7-40); Albumin 3.6 g/dL (3.2-4.8); Anion Gap 7 (5-15); Aspartate Aminotransferase 29 U/L (13-40); BUN/Creatinine Ratio 28.4 (10.0-20.0); Calcium 9.3 mg/dL (8.7-10.4); Carbon Dioxide 29 mmol/L (20-31); Chloride 102 mmol/L (98-107); Potassium 3.9 mmol/L (3.5-5.1); Sodium 138 mmol/L (136-145)
[2024-08-12 10:56] LABS: Bilirubin, Total 0.7 mg/dL (0.2-1.0); Total Protein 6.1 g/dL (5.7-8.2)
[2024-08-12 10:57] LABS: Alkaline Phosphatase 120 U/L (46-116); Blood Urea Nitrogen 42 mg/dL (9-23); Glucose 221 mg/dL (74-106)
[2024-08-12] MEDS: NAPROXEN 500 MG TAB PO ONE (17:15)
[2024-08-12] MEDS: POLYETHYLENE GLYCOL 17 GM PWDR PO ONE (17:16)
--- NOTE | 2024-08-12 17:33 | DVHPNRES ---
Progress Note Date Seen: Aug 12, 2024 Resident Creating Document: KIMBERLEY TESFAYE RESIDENT Medical Necessity Reason Pt with a Central, PICC or Fol: No Medical Necessity Reason Dehydration fall risk Subjective Review of Systems Patient seen and examine today. She was eating breakfast at my time of visit. She ate a decent amount of food. She mentioned that she has not had bowel movement in 3 days. Patient seemed teary. She was very concerned about other patients that they are very ill. Then she talked about missing her two daughters and became teary even more. She denied chest pain, palpitations, shortness of breath, anxiety. She walked with the PT today walked 30 ft. She is tolerating po very well. Labs improving Objective vital signs Vital Sign Date Time Temp Pulse Resp B/P (MAP) Pulse Ox O2 Delivery O2 Flow Rate FiO2 08/12/24 12:57 75 16 100 08/12/24 12:54 97.6 111/52 (71) 97.6 08/12/24 12:51 Room Air* 0 21 Total Intake and Output 08/11/24 08/11/24 08/12/24 15:00 23:00 07:00 Intake Total 970 ml 290 ml 400 ml Output Total 0 ml 800 ml Balance 970 ml 290 ml -400 ml medications Current Medications Medications Dose Ordered Sig/Guera Route Start Time Stop Time Status Last Admin Dose Admin Ondansetron HCl 4 mg Q4HP PRN IV 08/10/24 22:15 Acetaminophen 650 mg Q6HP PRN PO 08/10/24 22:15 Morphine Sulfate 2 mg Q4HPRN PRN IV 08/10/24 22:15 Enoxaparin Sodium 30 mg DAILY SC 08/11/24 10:00 08/12/24 10:01 30 MG Nitroglycerin 0.4 mg Q5MINP PRN SL 08/10/24 22:15 Morphine Sulfate 2 mg Q30M PRN IV 08/10/24 22:15 Pantoprazole Sodium 40 mg DAILY IV 08/11/24 10:00 08/12/24 10:01 40 MG Albuterol 2.5 mg Q6HWA NEB 08/11/24 12:00 08/12/24 12:51 2.5 MG Ipratropium [place] 0.5 mg Q6HWA NEB 08/11/24 12:00 08/12/24 12:51 0.5 MG Levothyroxine Sodium 50 mcg QAM@0600 PO 08/12/24 06:00 08/12/24 05:23 50 MCG Cholecalciferol 1,000 unit DAILY PO 08/11/24 10:00 08/12/24 10:01 1,000 UNIT Azithromycin 250 ml @ 125 mls/hr DAILY IV 08/12/24 10:00 08/12/24 10:02 125 MLS/HR Examination General examination- Not in acute distress, emotionally sad HEENT: PEERLA, no acute nasal discharge Chest: S1-S2 audible, rate and rhythm regular, no murmur Lung: CTAB, no wheeze or rhonchi Abdomen: Nondistended, BS+, nontender, no organomegaly Musculoskeletal: tenderness on the right side Extremity: no leg edema, but mild right ankle tenderness. No fracture noted on imaging Neurological: cranial nerves intact, no acute dysarthria or dysphagia Psychiatry-- Sad, missing her 2 daughters who . Skin- no acute rash or purpura laboratory and microbiology Laboratory Tests 08/12/24 10:15 08/11/24 05:11 Test 08/12/24 10:15 Range/Units Serum Glucose 221 H 74-106 mg/dL Labs and/or images reviewed: Labs reviewed by me, Image(s) reviewed by me Problem List/Assessment/Plan Problem List/Assessment/Plan Dehydration --> Continue Hold all anti hypertensive medications --> Hold furosemide --> Adequate hydration with IV fluids Fall secondary to dehydration --> Monitor volume status --> Monitor orthostatic BP Fall due to polypharmacy --> Hold diuretics and anti-hypertensives Acute on chronic kidney failure; vasomotor nephropathy --> Cr: 2.22--> 1.49 (Baseline Cr: 1.19) --> Continue oral hydration --> Continue hydrate with n/s 100ml/hr --> Creatinine trending down --> US: No hydronephrosis Constipation --> MiraLax COPD Exacerbation --> 35 pack years --> still smoking --> Not in respiratory distress --> Azithromycin/Ceftriaxone --> Breathing treatment PRN --> Keep monitoring hypertension --> Holding off on all --> BP: 110/69 --> Monitor BP closely Hypothyroidism --> levothyroxine 50mcg at home Hyperlipidemia --> Statin Code status: Full Prophylaxis: Lovenox, Protonix donor services coordinator consult: Home safety evaluation Goal of care discussed for 20 minute Case and plan discussed with Dr. Hernandez Plan discussed with: Patient, Daughter, Other (Nurse) My Orders My Orders Orders - KIMBERLEY TESFAYE RESIDENT Procedure Category Date Status Time Pt Request For Service PT 08/12/24 Logged 09:06 Addendum Addendum Addendum I was physically present for the nava portions of the service provided to patient by THE RESIDENT. I have reviewed the documentation, discussed the case with resident and agree with the resident's documentation except as noted. Also the patient's clinical case was discussed with the patient's nurse. This medical document was created using an electronic medical record system with computerized dictation system. Although this document has been carefully reviewed, there might still be some phonetic and typographical errors. These areas are purely typographical due to imperfections of the software programs, and do not reflect any compromise in the patient's medical care. Late signature. Date of Service: Aug 12, 2024 Billing Provider: ELVA HERNANDEZ MD Common Visit Codes: 15506-[id number] INP/OBS CARE(HIGH) Secondary Visit Codes: 18994-[id number] CARE PLAN 30 MINUTES (20 minutes) KIMBERLEY TESFAYE RESIDENT Aug 12, 2024 17:33 ELVA HERNANDEZ MD Aug 14, 2024 05:10
[2024-08-13] VITALS (9 sets, daily range): BP systolic 105–110; BP diastolic 49–72; PULSE 58–74; RESP 14–18; TEMP 97.8–98; O2SAT 93–100
[2024-08-13 08:25] LABS: Chloride 104 mmol/L (98-107); Potassium 4.5 mmol/L (3.5-5.1); Sodium 141 mmol/L (136-145)
[2024-08-13 08:26] LABS: Anion Gap 5 (5-15); Calcium 9.8 mg/dL (8.7-10.4)
[2024-08-13 08:31] LABS: BUN/Creatinine Ratio 23.7 (10.0-20.0); Glucose 95 mg/dL (74-106)
[2024-08-13 08:36] LABS: Blood Urea Nitrogen 33 mg/dL (9-23); Carbon Dioxide 32 mmol/L (20-31)
[2024-08-13] MEDS ORDERED: PANT40TA2 PO (12:35)
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
--- NOTE | 2024-08-14 13:55 | DVHPN2 ---
Progress Note - Dictate Date Seen: Aug 14, 2024 Medical Necessity Reason Pt with a Central, PICC or Fol: No Subjective PT WITH SS COMPLEX LE PAIN LETHARGY FATIGUE PMH; CHEST PAIN HX OF CAD HX OF [place] 10/2019 S/P [facility] 2022 * Left main without any flow restrictive lesion, short left main. * Left anterior descending artery, mild intimal irregularity without any flow restrictive lesion. * Circumflex, mild intimal irregularity without any flow restrictive lesion. * Right coronary artery in the mid portion had about a 50-60% narrowing. The patient underwent FFR of the right coronary artery, found to have an FFR of 0.81. Therefore, we elected not to intervene * Ventriculogram was done using 6-Ivorian pigtail catheter. EF around 65% with an LVEDP elevated at about 18 mmHg with no gradient across the aortic valve. COPD HTN SKIN CANCER HYPOTHYROIDISM SURGICAL HX PTCA CHOLECYSTECTOMY APPENDECTOMY SEVERE HYPOKALEMIA HYPOVOLEMIA vital signs Vital Sign Date Time Temp Pulse Resp B/P (MAP) Pulse Ox O2 Delivery O2 Flow Rate FiO2 08/13/24 17:44 97.9 71 17 97 08/13/24 17:00 108/67 (81) 08/13/24 12:02 Room Air 08/13/24 12:02 0 21 Total Intake and Output 08/13/24 08/13/24 08/14/24 15:00 23:00 07:00 Intake Total 250 ml 560 ml Output Total 450 ml Balance 250 ml 110 ml laboratory and microbiology Laboratory Tests 08/13/24 07:43 08/11/24 05:11 Test 08/13/24 07:43 Range/Units Serum Glucose 95 74-106 mg/dL Problem List SS COMPLEX LE PAIN LETHARGY FATIGUE PMH; CHEST PAIN HX OF CAD HX OF [place] 10/2019 S/P [facility] 2022 * Left main without any flow restrictive lesion, short left main. * Left anterior descending artery, mild intimal irregularity without any flow restrictive lesion. * Circumflex, mild intimal irregularity without any flow restrictive lesion. * Right coronary artery in the mid portion had about a 50-60% narrowing. The patient underwent FFR of the right coronary artery, found to have an FFR of 0.81. Therefore, we elected not to intervene * Ventriculogram was done using 6-Ivorian pigtail catheter. EF around 65% with an LVEDP elevated at about 18 mmHg with no gradient across the aortic valve. COPD HTN SKIN CANCER HYPOTHYROIDISM SURGICAL HX PTCA CHOLECYSTECTOMY APPENDECTOMY SEVERE HYPOKALEMIA HYPOVOLEMIA Assessment/Plan IV FLUID PT IS AOUT 3.[address] HEAD NEGATIVE [address] OF ABD NEGATIVE FOR ANY ACUTE PROCESS HH DIVERTICULOSIS RENAL U/S NEGATIVE SIGNIFICANT IMPROVEMENT IN RENAL FUNCTION Plan discussed with: Patient ANTONETTE DAVIS MD Aug 14, 2024 13:55
== END 2024-08-13 19:00 | disposition home health service (06) | DRG 640 ==
LOC: ER 17:15 → EDBD 17:15 → TELE 22:11 → TELE-E-ADS 23:46
PROVIDERS: ADMIT Student in an Organized Health Care Education/Training Program; ATTEND Student in an Organized Health Care Education/Training Program
DX: E86.0 Dehydration (principal); N17.0 Acute kidney failure with tubular necrosis; J44.1 Chronic obstructive pulmonary disease with (acute) exacerbation; R62.7 Adult failure to thrive; R29.6 Repeated falls; E03.9 Hypothyroidism, unspecified; N18.9 Chronic kidney disease, unspecified; K59.00 Constipation, unspecified; F17.210 Nicotine dependence, cigarettes, uncomplicated; E78.5 Hyperlipidemia, unspecified; R73.03 Prediabetes; I25.10 Atherosclerotic heart disease of native coronary artery without angina pectoris; K57.30 Diverticulosis of large intestine without perforation or abscess without bleeding; I12.9 Hypertensive chronic kidney disease with stage 1 through stage 4 chronic kidney disease, or unspecified chronic kidney disease; D64.9 Anemia, unspecified; Z88.0 Allergy status to penicillin; Z88.8 Allergy status to other drugs, medicaments and biological substances; Z90.710 Acquired absence of both cervix and uterus; Z90.49 Acquired absence of other specified parts of digestive tract; I25.2 Old myocardial infarction; Z82.3 Family history of stroke; Z63.4 Disappearance and death of family member; Z68.22 Body mass index [BMI] 22.0-22.9, adult
CPT/HCPCS: 36415; 70450; 73610; 74176; 76775; 80048; 80053; 80307; 81001; 82306; 82550; 82570; 82607; 82746; 83036; 83605; 83880; 84300; 84443; 84484; 85025; 85610; 93005; 94640; 97110; 97116; 97162; G0378; J2470

== ENCOUNTER → 2024-08-16 | Outpatient (CLI) | payer MEDICARE, OTHER ==
[~2024-08-16] VITALS: Ht 30.5 cm; Wt 0.5 kg
[~2024-08-16] MED LIST changes: -CEPH500C PO; +PANT40TA2 PO; -PRED20TA2 PO
[2024-08-16] MEDS: MVI in SODIUM CHLORIDE 0.9% 500 ML IVB ONE (12:10)
[2024-08-16] MEDS: MULTIPLE VIT 10 ML IV ONE (12:19)
[2024-08-16 12:40] VITALS: BP 114/62; PULSE 86; RESP 16; O2SAT 96
[2024-08-16 14:42] VITALS: BP 102/65; PULSE 78; RESP 16; O2SAT 98
== END | disposition home or self-care (01) ==
LOC: CHF HDHVI 12:10
PROVIDERS: ATTEND Internal Medicine Cardiovascular Disease
DX: E86.0 Dehydration (principal); I25.10 Atherosclerotic heart disease of native coronary artery without angina pectoris; I13.0 Hypertensive heart and chronic kidney disease with heart failure and stage 1 through stage 4 chronic kidney disease, or unspecified chronic kidney disease; N18.9 Chronic kidney disease, unspecified; I50.9 Heart failure, unspecified; J44.9 Chronic obstructive pulmonary disease, unspecified; E78.5 Hyperlipidemia, unspecified; E03.9 Hypothyroidism, unspecified; I25.2 Old myocardial infarction; F17.210 Nicotine dependence, cigarettes, uncomplicated; Z90.710 Acquired absence of both cervix and uterus; Z90.49 Acquired absence of other specified parts of digestive tract; Z88.0 Allergy status to penicillin; Z88.8 Allergy status to other drugs, medicaments and biological substances
CPT/HCPCS: 96365; 96366; G0463; J7040; 96360; 96361

== ENCOUNTER → 2024-09-01 | Outpatient (CLI) | payer MEDICARE, OTHER ==
--- NOTE | 2024-09-01 13:38 | DVH ---
EXAM: XY CHEST TWO VIEWS ROUTINE CLINICAL HISTORY: COUGH COMPARISON: XY CHEST TWO VIEWS ROUTINE on DOS: 07/14/24, XY CHEST TWO VIEWS ROUTINE on DOS: 11/25/22 TECHNIQUE: Frontal and lateral view of the chest was obtained FINDINGS: Lines and Tubes: None Lungs: No focal consolidation. Pleura: No effusion. No pneumothorax. Cardiomediastinal contours: Unremarkable Bones: No acute osseous abnormality. IMPRESSION: No acute cardiopulmonary disease.
--- NOTE | 2024-09-01 14:19 | DVH ---
CT LS SPINE WO CONTRAST Date: 09/01/2024 10:31 AM History: LBP Comparison: None TECHNIQUE: Multiple axial CT images of the lumbosacral spine were obtained using bone algorithm. Axial and coron al reformatting was done. Bone and soft tissue windows were reviewed. Radiation Dose Information: CT Dose: CTDI volume is 16.33 mGy. Dose-length product is 408.78 mGy*cm FINDINGS: No CT evidence of definite acute fracture, spinal dislocation, or significant appearing acute subluxa tion is seen. The visualized paraspinal soft tissues are grossly unremarkable. Nonobstructing calculus left kidney T12-L1 There is no evidence of central spinal canal or neuroforaminal stenosis. L1-L2 There is no evidence of central spinal canal or neuroforaminal stenosis. L2-L3 There is no evidence of central spinal canal or neuroforaminal stenosis. L3-L4 mild diffuse annular bulge of the disc with no central canal stenosis. Degenerative disc change s L4-L5 mild diffuse annular bulging of the disc mild central canal stenosis. Narrowing of the right ne ural foramen appears worse than the left due to bulging of the disc. There are hypertrophic arthritic changes of the posterior facets and hypertrophy of the ligamentum flavum. L5-S1 There is no evidence of central spinal canal or neuroforaminal stenosis. Degenerative disc naranjo ges IMPRESSION: 1. No definite CT evidence of acute fracture or dislocation of the bony lumbar spine. 2. Vacuum disc phenomenon consistent with degenerative disc changes L3 through S1 3. Diffusely bulging disc worse at L4-5 involving of the right neural foramen greater than left. All CT scans at this medical facility are performed using dose modulation techniques as appropriate t o a performed exam including the following: Automated exposure control was utilized; adjustment of th e MA and/or KV according to patient size; and use of iterative reconstruction technique.
== END | disposition home or self-care (01) ==
LOC: Rad HDHVI 10:01
PROVIDERS: ATTEND Internal Medicine Cardiovascular Disease
DX: M51.379 Other intervertebral disc degeneration, lumbosacral region without mention of lumbar back pain or lower extremity pain (principal); M48.061 Spinal stenosis, lumbar region without neurogenic claudication; M47.896 Other spondylosis, lumbar region; R07.9 Chest pain, unspecified; M54.50 Low back pain, unspecified
CPT/HCPCS: 71046; 72131

== ENCOUNTER → 2024-12-07 | Outpatient (CLI) | payer MEDICARE, OTHER ==
--- NOTE | 2024-12-08 09:03 | DVHSR ---
APPROVED REPORT EXAM: LIMITED Two-dimensional and M-mode echocardiogram with Doppler and color Doppler. DIMENSIONS LVDd3.1 (3.8-5.7cm)LA (2D)3.4 (1.9-4.0cm)Aortic Root2.8 (2.0-3.7cm) LVDs2.3 (2.5-4.0cm)LA (MM) (1.9-4.0cm)Aortic Cusp Exc1.6 (1.5-2.0cm) EF (%) 55.0 (55-70%)Rt. Atrium3.6 (1.9-4.0cm)Asc. Aorta cm IVSd0.8 (0.7-1.1cm)RV (D) (1.8-2.4cm) PWd0.8 (0.7-1.1cm) Mitral Valve MitralMitral Stenosis E wave0.90m/sMV Mean GR.mmHg A wave1.10m/sMV Peak GR.mmHg E/A ratio0.82D MVAcm2 Aortic Valve Aortic ValveAortic Stenosis V10.70m/Jolynn Mean GR.4mmHg V21.30m/Jolynn Peak GR.7mmHg LVOT Diameter2.0 (1.8-2.4cm)Doppler AVA1.69cm2 Tricuspid Valve TR Velocity2.80m/s [id number] LEFT VENTRICLE The left ventricle is normal size. The left ventricle is normal in structure and function. The Ejection Fraction is within normal limits. RIGHT VENTRICLE The right ventricle is normal size. ATRIA The left atrial size is normal. The right atrium size is normal. The interatrial septum is intact with no evidence for an atrial septal defect. MITRAL VALVE The mitral valve is normal in structure and function. Mitral regurgitation is mild. PULMONIC VALVE The pulmonic valve is not well visualized. TRICUSPID VALVE The tricuspid valve is grossly normal. There is trace to mild tricuspid regurgitation. AORTIC VALVE The aortic valve opens well. No aortic regurgitation is present. GREAT VESSELS The aortic root is normal size. PERICARDIAL EFFUSION There is no pericardial effusion. Other Information Quality : Technically LimitedRhythm : Technically limited study due to body habitus. Conclusion EF >55%
== END | disposition home or self-care (01) ==
LOC: Rad HDHVI 14:39
PROVIDERS: ATTEND Internal Medicine Cardiovascular Disease
DX: I08.1 Rheumatic disorders of both mitral and tricuspid valves (principal); I10 Essential (primary) hypertension
CPT/HCPCS: 93306

== ENCOUNTER → 2024-12-12 | Outpatient (CLI) | payer MEDICARE, OTHER ==
[~2024-12-12] VITALS: Ht 157.5 cm; Wt 64.9 kg
[~2024-12-12] MED LIST changes: +ADENOSINE 54 MG in GIVE UN-DILUTED 0 ML IV ONE; +ADENOSINE 90 MG/30 ML INJ IV ONE
== END | disposition home or self-care (01) ==
LOC: Rad HDHVI 08:51
PROVIDERS: ATTEND Internal Medicine Cardiovascular Disease
DX: I49.1 Atrial premature depolarization (principal); I49.3 Ventricular premature depolarization; R11.0 Nausea; R06.00 Dyspnea, unspecified; I11.0 Hypertensive heart disease with heart failure; I50.33 Acute on chronic diastolic (congestive) heart failure; I25.10 Atherosclerotic heart disease of native coronary artery without angina pectoris; J44.9 Chronic obstructive pulmonary disease, unspecified; J18.9 Pneumonia, unspecified organism; N17.9 Acute kidney failure, unspecified; E78.00 Pure hypercholesterolemia, unspecified; I73.9 Peripheral vascular disease, unspecified; R07.89 Other chest pain; F17.210 Nicotine dependence, cigarettes, uncomplicated; Z82.49 Family history of ischemic heart disease and other diseases of the circulatory system
CPT/HCPCS: 78452; 93017; A9500; J0153; 93005; 96374; 96375